=== PATIENT | male | born 1960 | race Caucasian/White ===

== ENCOUNTER 2021-10-26 09:48 | Outpatient (REF) | payer MEDICARE, OTHER, SELFPAY ==
[2021-10-26 11:02] LABS: MANUAL DIFF FLAG NO
[2021-10-26 11:05] LABS: Basophils Percent Auto 0.4 % (0-2); Eosinophils Percent Auto 0.4 % (0-4); Hematocrit 46.7 % (42.0-52.0); Hemoglobin 15.2 g/dl (14.0-18.0); Imm Gran Abs Auto 0.02 X10*3/uL (0.00-0.03); Imm Gran Pct Auto 0.3 % (0.0-0.4); Lymphocytes Absolute Auto 1.8 X10*3/uL (1.2-4.9); Lymphocytes Percent Auto 24.1 % (20-40); Mean Corpuscular HGB Conc 32.5 g/dl (31.0-36.0); Mean Corpuscular Hemoglobin 30.2 pg (27.0-33.0); Mean Corpuscular Volume 92.7 fL (80.0-98.0); Monocytes Absolute Auto 0.4 X10*3/uL (0.1-1.2); Neutrophils Percent Auto 68.8 % (45-73); Platelet Count 342 X10*3/uL (160-400); Red Blood Count 5.04 X10*6/uL (4.60-5.80); Red Cell Distribution Width 13.2 % (11.0-16.0); White Blood Count 7.3 X10*3/uL (4.8-10.8)
[2021-10-26 11:47] LABS: Alanine Aminotransferase 14 U/L (0-40); Albumin Level 4.6 g/dL (3.5-5.0); Alkaline Phosphatase 102 U/L (39-117); Anion Gap 18 (12-20); Aspartate Amino Transferase 21 U/L (5-37); Bilirubin Total 0.5 mg/dL (0.0-1.0); Blood Urea Nitrogen 16 mg/dL (9-16); Carbon Dioxide 25 mmol/L (22-29); Chloride 97 mmol/L (96-108); Cholesterol 166 mg/dL; Estimated Glomerular Filt Rate > 60; Glucose Fasting 88 mg/dL (60-99); HDL Cholesterol 48 mg/dL; LDL Cholesterol Calculated 98 mg/dl; Potassium 5.4 mmol/L (3.3-5.1); Sodium 135 mmol/L (135-145); Total Protein 7.5 g/dL (6.5-8.0); Triglycerides 100 mg/dL
[2021-10-26 12:08] LABS: Prostate Specific Antigen 0.96 ng/mL (<0.05-4.0)
== END 2021-10-26 09:49 | disposition home or self-care (01) ==
LOC: HO.MANLDS 09:48
PROVIDERS: PCP Physician Assistant; Visit Provider Physician Assistant
DX: Z12.5 Encounter for screening for malignant neoplasm of prostate (principal); E78.01 Familial hypercholesterolemia
CPT/HCPCS: 36415; 80053; 80061; 84153; 85025

== ENCOUNTER 2023-08-04 09:43 | Outpatient (REF) | payer MEDICARE, MEDICAID, SELFPAY ==
[2023-08-04 13:57] LABS: Anion Gap 11 (12-20); Blood Urea Nitrogen 19 mg/dL (9-16); Calcium 9.6 mg/dL (8.4-10.2); Carbon Dioxide 31 mmol/L (22-29); Chloride 100 mmol/L (96-108); Estimated Glomerular Filt Rate > 60; Glucose Random 83 mg/dL (60-115); Potassium 4.8 mmol/L (3.3-5.1); Sodium 137 mmol/L (135-145)
[2023-08-04 14:17] LABS: Free T4 (Free Thyroxine) 0.75 ng/dL (0.71-1.85); Thyroid Stimulating Hormone 3.54 uIU/mL (0.32-4.0)
== END 2023-08-04 09:44 | disposition home or self-care (01) ==
LOC: HO.MANLDS 09:43
PROVIDERS: Visit Provider Physician Assistant
DX: E03.9 Hypothyroidism, unspecified (principal); E87.5 Hyperkalemia
CPT/HCPCS: 36415; 80048; 84439; 84443

== ENCOUNTER 2024-11-25 09:23 | Outpatient (REF) | payer MEDICARE, MEDICAID, SELFPAY ==
[2024-11-25 13:53] LABS: MANUAL DIFF FLAG NO
[2024-11-25 14:00] LABS: Basophils Percent Auto 0.3 % (0-2); Eosinophils Percent Auto 0.2 % (0-4); Hematocrit 44.1 % (42.0-52.0); Hemoglobin 14.6 g/dl (14.0-18.0); Imm Gran Abs Auto 0.04 X10*3/uL (0.00-0.03); Imm Gran Pct Auto 0.5 % (0.0-0.4); Lymphocytes Absolute Auto 2.3 X10*3/uL (1.2-4.9); Lymphocytes Percent Auto 26.5 % (20-40); Mean Corpuscular HGB Conc 33.1 g/dl (31.0-36.0); Mean Corpuscular Hemoglobin 30.2 pg (27.0-33.0); Mean Corpuscular Volume 91.1 fL (80.0-98.0); Mean Platelet Volume 8.8 fL (9.4-12.4); Monocytes Absolute Auto 0.6 X10*3/uL (0.1-1.2); Neutrophils Absolute Auto 5.8 x10*3/uL (2.0-8.3); Neutrophils Percent Auto 65.5 % (45-73); Platelet Count 351 X10*3/uL (160-400); Red Blood Count 4.84 X10*6/uL (4.60-5.80); Red Cell Distribution Width 13.1 % (11.0-16.0); White Blood Count 8.8 X10*3/uL (4.8-10.8)
[2024-11-25 14:08] LABS: Estimated Average Glucose 117 mg/dL; Hemoglobin A1C 149.0749 umol/L; Hemoglobin A1c % 5.7 % (<6.0)
[2024-11-25 14:36] LABS: Erythrocyte Sedimentation Rate 5 MM/HR (0-15)
[2024-11-25 14:42] LABS: Alanine Aminotransferase 38 U/L (0-40); Albumin Level 4.5 g/dL (3.5-5.0); Alkaline Phosphatase 102 U/L (39-117); Amylase 82 U/L (28-100); Anion Gap 16 (12-20); Aspartate Amino Transferase 43 U/L (5-37); Bilirubin Total 0.5 mg/dL (0.0-1.0); Blood Urea Nitrogen 13 mg/dL (9-16); C Reactive Protein < 0.10 mg/dL (< or = 0.50); Calcium 9.7 mg/dL (8.4-10.2); Carbon Dioxide 26 mmol/L (22-29); Chloride 100 mmol/L (96-108); Cholesterol 139 mg/dL (<200); Estimated Glomerular Filt Rate > 60; Glucose Random 96 mg/dL (60-115); HDL Cholesterol 57 mg/dL (>40); Iron 128 mcg/dL (45-160); LDL Cholesterol Calculated 68 mg/dL (<100); Lipase 35 U/L (8-78); Percent Iron Saturation 43 % (15-50); Potassium 4.8 mmol/L (3.3-5.1); Sodium 137 mmol/L (135-145); Total Iron Binding Capacity 297 mcg/dL (228-428); Total Protein 7.5 g/dL (6.5-8.0); Triglycerides 71 mg/dL (<150); Unsaturated Iron Binding 169 ug/dL
[2024-11-25 14:57] LABS: Prostate Specific Antigen 1.46 ng/mL (<0.05-4.0)
[2024-11-25 14:59] LABS: Gamma Glutamyl Transpeptidase 20 U/L (11-51)
[2024-11-25 15:05] LABS: Ferritin 145 ng/mL (20-250); Thyroid Stimulating Hormone 4.24 uIU/mL (0.32-4.0)
[2024-11-25 18:20] LABS: Appearance Urine Clear; Color Urine Yellow; Glucose Urine UA Negative (Negative); Leukocyte Esterase Urine Negative (Negative); Nitrite Urine Negative (Negative); PH 5.5 (5.0-9.0); UMIC TRIGGER UACC YES; Urine Blood Small (1+) (Negative); Urine Ketones 15 mg/dL (Negative); Urine Protein Negative (Neg-Trace)
[2024-11-25 18:29] LABS: Bacteria Urine None Seen (None Seen); Hyaline Casts Urine 0-2 /LPF (0-2); Squamous Epithelial Cell Urine 0-2 /HPF (0-2); WBC Urine 0-5 /HPF (0-5)
[2024-11-25 18:47] LABS: T4 Thyroxine 6.7 ug/dL (4.5-12.0)
== END 2024-11-25 09:24 | disposition home or self-care (01) ==
LOC: HO.MANLDS 09:23
PROVIDERS: Visit Provider Internal Medicine
DX: Z12.5 Encounter for screening for malignant neoplasm of prostate (principal); Z13.1 Encounter for screening for diabetes mellitus; R19.7 Diarrhea, unspecified; E03.8 Other specified hypothyroidism; E78.01 Familial hypercholesterolemia; N40.1 Benign prostatic hyperplasia with lower urinary tract symptoms
CPT/HCPCS: 36415; 80053; 80061; 81001; 82150; 82728; 82977; 83036; 83540; 83690; 84153; 84436; 84443; 85025; 85652; 86140

== ENCOUNTER 2024-12-24 09:05 | Outpatient (REF) | payer MEDICARE, MEDICAID, SELFPAY ==
--- OUTSIDE RECORDS SUMMARY | 2024-12-24 09:44 | XMS_ITS | Data Portability ---
Author Organization [facility] Service Address [address] [place] [address] Assessment Encounter Date Assessment Date Assessment LastModified by Organization Details LastModified Time 05/04/2022 05/04/2022 Patient agreed and verbally consents to this audio and video Telehealth appt via a secure platform [email or web address] Not available 05/04/2022 09:32:56 Plan of Treatment Reminders Order Date Submit Date Provider Last Modified By Organization Details Last Modified Time Details Appointments None recorded. Lab C reactive protein, QN, serum or plasma 2024 025 [facility], [address] [place] [address], [address], 09:17:21 amylase + lipase, serum 2024 025 [facility], [address] [place] [address], [address], 5 09:17:21 ESR (erythrocy te sedimentat ion rate), blood 2024 025 [facility], [address] [place] [address], [address], 5 09:17:21 iron + TIBC + ferritin, serum 2024 025 [facility], [address] [place] [address], [address], 5 11:18:33 gamma-glut amyl transferas e (ggt), serum 2024 025 [facility], [address] [place] [address], [place], [address], 5 09:17:21 PSA, serum or plasma 2024 025 [facility], [address] [place] [address], [address], 5 09:09:34 lipid panel, blood 2024 025 [facility], [address] [place] [address], [address], 5 09:09:34 CMP, serum or plasma 2024 025 [facility], [address] [place] [address], [address], 5 09:09:34 CBC w/ auto diff 2024 025 [facility], [address] [place] [address], [place], [address], 5 09:09:34 hemoglobin A1c, QN, blood 2024 025 [facility], [address] [place] [address], [address], 5 09:09:34 TSH + free T4, serum 2024 025 [facility], [address] [place] [address], [address], 5 09:09:34 urinalysis complete, reflex culture 2024 025 [facility], [address] [place] [address], [address], 5 09:09:34 TSH + free T4, serum 12/08/ 2023 12/08/2 023 [facility], [address] [place] [address], [address], 3 09:30:17 hemoglobin A1c, QN, blood 2022 023 [facility], [place], [address], 3 15:41:14 PSA, serum or plasma 2022 023 [facility], [place], [address], 3 15:29:25 TSH + free T4, serum 2022 023 [facility], [place], [address], 3 15:36:24 lipid panel, blood 2022 023 [facility], [place], [address], 3 15:07:34 CMP, serum or plasma 2022 023 [facility], [place], [address], 3 10:00:49 CBC w/ auto diff 2022 023 [facility], [place], [address], 3 14:41:01 PSA, serum or plasma 2021 022 [facility], [address] [place] [address], [address], 2 09:45:07 CMP, serum or plasma 2021 022 [facility], [address] [place] [address] [place], [address], 2 14:13:02 lipid panel, blood 2021 022 [facility], [address] [place] [address], [address], 2 09:45:07 CBC w/ auto diff 2021 022 [facility], [address] [place] [address], [address], 2 09:45:08 Referral gastroente rologist referral 2024 025 [facility], [address] [place] [address], [address], 5 09:06:47 dermatolog ist referral 2022 023 [facility], [address] [place], [address], 3 08:58:42 dermatolog ist referral 2022 023 [facility], [address] [place], [address], 3 08:33:05 Procedures None recorded. Surgeries None recorded. Imaging US, neck, soft tissue 2022 023 [facility], [address] [place], [address], 3 08:58:12 Medication Orders venlafaxin e ER 150 mg capsule,ex tended release 24 hr 2021 022 [email or web address] Not available 5 10:01:03 metoprolol tartrate 50 mg tablet 2021 022 [facility]/Pharmacy #2025, [address] [place], [address], 2 09:37:20 lisinopril 10 mg tablet 2021 [facility]Pharmacy #2024, [address] [place], [address], 2 09:37:20 atorvastat in 80 mg tablet 2021 [facility]Pharmacy #2024, [address] [place], [address], 2 09:37:21 venlafaxin e ER 75 mg capsule,ex tended release 24 hr 2021 [facility]/Pharmacy #2024, [address] [place], [address], 2 09:32:47 Patient TargetsNo targets recorded. Patient InstructionsNo instructions recorded. 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 [facility] [address] [place], [address], 08/11/2023 13:28:20 08/18/20 23 08/18/2023 US, duple x, carot id arter y No observ ation record ed. [email or web address] [facility] [address] [place], [address], 08/18/2023 14:36:42 12/04/19 25 12/03/2024 CT, abdom en + pelvi s, w/ contr ast No observ ation record ed. [email or web address] [facility] (Emergency Room) [address] [place], [address], 12/03/2024 08:16:10 Result Notes None recorded. 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 Urology work up Not Available [facility] 19:17:56 Coronary occlusio n 10084562 Active 2017 RCA s/p sent 2006 Not Available [facility] 19:17:56 Myocardi al infarcti on 98446863 Active 2018 Not Available [facility] 19:17:56 Mild recurren t major depressi on 06761042 Active 2018 Not Available [facility] 1 19:17:56 Impaired fasting glycemia 643691028 Active 2022 JOVAN WILLIS [address] [place], [address], [facility] 3 09:54:00 Basal cell carcinom a of skin 619974668 Active 2022 JOVAN WILLIS [address] [place], [address], [facility] 3 09:55:37 Hypothyr oidism 71160480 Active 2022 JOVAN WILLIS [address] [place] [address], [address], [facility] 3 08:57:12 Hyperkal emia 18848042 Active 2022 JOVAN WILLIS [address] [place] [address], [address], [facility] 3 08:57:19 Mass of neck 816379913 Active 2022 JOVAN WILLIS [address] [place] [address], [address], [facility] 3 09:30:59 Skin lesion 75153973 Active 2022 JOVAN WILLIS [address] [place] [address], [address], [facility] 3 09:33:54 Carotid artery stenosis 90991997 Active 2022 JOVAN WILLIS [address] [place] [address], [address], [facility] 3 13:28:52 Diarrhea 35722729 Active 2024 JOVAN WILLIS [address] [place] [address], [address], [facility] 5 09:04:23 Benign prostati c hyperpla clinton 442065743 Active 2024 JOVAN WILLIS [address] [place], [address], [facility] 5 09:06:51 Anxiety 71229446 Active 2024 JOVAN WILLIS [address] [place], [address], [facility] 5 10:00:54 Problem Notes None recorded. Procedures Surgical History Date Name Laterality Status Provider Name and Address Organization Details Recorded Time 08/28/19 07 placement of stent completed [facility] 06/03/2019 08:26:33 hemorrhoid operation completed [facility] 06/03/2019 08:28:08 Thoracostomy w/flap drainage completed November KUNAL Mitchell [address] [place], [address], [facility] 06/03/2019 10:09:53 Imaging Results Imaging Date Name Status LastModified by Organiz ation Details LastModified Time 08/11/2023 US, neck, soft tissue completed [email or web address] [facility] [address] [place], [address], 08/11/2023 13:28:20 08/18/2023 US, duplex, carotid artery completed [email or web address] [facility] [address] [place], [address], 08/18/2023 14:36:42 12/03/2024 CT, abdomen + pelvis, w/ contrast completed [email or web address] [facility] (Emergency Room) [address] [place] [address], [address], 12/03/2024 08:16:10 Procedure Notes None recorded. Medical Equipment None Reported. Allergies No known drug allergies Medications Name Sig Start Date Stop Date Status Note LastModified by Organization Details LastModified Time cyclobenzap rine 10 mg tablet Take 1 mg every day by oral route for 30 days. 11/21 completed Not Available Not Available Not Available atorvastati n 80 mg tablet TAKE 1 TABLET BY MOUTH EVERY DAY active Not Available Not Available No t Available venlafaxine ER 75 mg capsule,ext ended release 24 hr TAKE 1 CAPSULE BY MOUTH EVERY DAY active Not Available Not Available No t Available azithromyci n 250 mg tablet TAKE 2 TABLETS (500 MG) BY ORAL ROUTE ONCE DAILY FOR 1 DAY THEN 1 TABLET (250 MG) BY ORAL ROUTE ONCE DAILY FOR 4 DAYS 06/03 completed Not Available Not Available Not Available Medrol (Matt) 4 mg tablets in a dose pack 24 mg PO on day 1, then decr. by 4 mg/day x5 days per dose pack instructi ons 06/03 completed Not Available Not Available Not Available gabapentin 400 mg capsule TAKE 1 CAPSULE BY MOUTH THREE TIMES A DAY 10/26 completed Not Available Not Available Not Available venlafaxine ER 150 mg capsule,ext ended release 24 hr TAKE 1 CAPSULE DAILY 11/27 completed Not Available Not Available Not Available flaxseed oil 1,000 mg capsule Take 1 capsule every day by oral route. active Not Available Not Available No t Available tamsulosin 0.4 mg capsule TAKE 1 CAPSULE BY MOUTH NIGHTLY AT BEDTIME. active Not Available Not Available No t Available levothyroxi ne 50 mcg tablet TAKE 1 TABLET BY MOUTH EVERY DAY 11/21 completed Not Available Not Available Not Available lisinopril 10 mg tablet TAKE 1 TABLET BY MOUTH EVERY DAY active Not Available Not Available No t Available metoprolol tartrate 50 mg tablet TAKE 1 TABLET BY MOUTH TWICE A DAY active Not Available Not Available No t Available Pneumovax-2 3 25 mcg/0.5 mL injection syringe [facility] 10/26 completed Not Available Not Available Not Available duloxetine 20 mg capsule,del ayed release TAKE 1 CAPSULE BY MOUTH TWICE A DAY 10/26 completed Not Available Not Available Not Available duloxetine 30 mg capsule,del ayed release 12/02 completed Not Available Not Available Not Available Aspir-81 Take one tablet once a day active Not Available Not Available No t Available multivitami n active Not Available Not Available Not Available Tenivac (PF) 5 Lf unit-2 Lf unit/0.5 mL intramuscul ar suspension [facility] 10/26 completed Not Available Not Available Not Available duloxetine 40 mg capsule,del ayed release Take 1 capsule every day by oral route for 90 days. 11/21 completed Not Available Not Available Not Available Fish Oil 1,000 mg (120 mg-180 mg) capsule Take 2 capsules every day by oral route. active Not Available Not Available No t Available Flucelvax Quad (PF) 60 mcg (15 mcg x 4)/0.5 mL IM syringe [facility] 01/06 completed Not Available Not Available Not Available Vitals Date Recorded Body height Body mass index (BMI) Body weight Oxygen saturation Oxygen saturation in Arterial blood by Pulse oximetry Heart rate Systolic blood pressure Diastolic blood pressure Provider Name and Address Organization Details Last Updated DateTime 2 169.55 cm 22.3 kg/m2 08715.6 g 98 % 98 % 81 /min 140 mm[Hg] 100 mm[Hg] Margi Hurst [facility] 2 09:27:21 Date Recorded Body height Body mass index (BMI) Body weight Heart rate Oxygen saturation Oxygen saturation in Arterial blood by Pulse oximetry Systolic blood pressure Diastolic blood pressure Provider Name and Address Organization Details Last Updated DateTime 3 172.72 cm 20.2 kg/m2 03283.7 9 g 65 /min 98 % 98 % 128 mm[Hg] 78 mm[Hg] Neisha Barreto [facility] 3 09:39:32 Date Recorded Body height Body mass index (BMI) Body weight Heart rate Oxygen saturation Oxygen saturation in Arterial blood by Pulse oximetry Systolic blood pressure Diastolic blood pressure Provider Name and Address Organization Details Last Updated DateTime 3 172.72 cm 25.4 kg/m2 87554.9 3 g 74 /min 98 % 98 % 138 mm[Hg] 78 mm[Hg] Catarina Leon [facility] 3 09:24:37 Date Recorded Body height Body mass index (BMI) Body weight Heart rate Oxygen saturation Oxygen saturation in Arterial blood by Pulse oximetry Systolic blood pressure Diastolic blood pressure Provider Name and Address Organization Details Last Updated DateTime 5 172.72 cm 20.4 kg/m2 22622.3 8 g 75 /min 97 % 97 % 140 mm[Hg] 90 mm[Hg] Neisha Barreto [facility] 5 08:59:01 Social History Question Answer Notes LastModified by Organizat ion Details LastModified Time Tobacco Smoking Status Former Smoker Not Available [facility] 06/30/2020 03:36:24 Do You Or Have You Ever Used E-cigarettes Or Vape? Never Used Electronic Cigarettes [id number] Information not available 06/30/2020 What Was The Date Of Your Most Recent Tobacco Screening? 11/25/2024 [email or web address] Information not available 11/25/2024 Do You Or Have You Ever Used Smokeless Tobacco? Never Used Smokeless Tobacco [id number] Information not available 06/30/2020 How Many Years Have You Smoked Tobacco? 25 [id number] Information not available 06/30/2020 Do You Or Have You Ever Used Any Other Forms Of Tobacco Or Nicotine? No [email or web address] Information not available 11/21/2022 Sex: Unknown Functional Status None recorded. Mental Status None recorded. Family History Relationship Description Onset Age of this Age Resolved Age Notes LastModified by Organization Details LastModified Time Father Cerebrovascu lar disease [email or web address] Not available 10/28 08:52:14 Father Diabetes mellitus [email or web address] Not available 2018 08:25:27 Father Coronary arterioscler osis [email or web address] Not available 06/03 10:07:24 Mother Diabetes mellitus [email or web address] Not available 2018 08:25:40 Mother Cerebrovascu lar disease [email or web address] Not available 10/28 08:52:14 Mother Myocardial infarction [email or web address] Not available 02/2019 10:07:15 Medical History Condition Response Coronary Artery Disease N Gout N Other N Kidney Stones N Blood Diseases N Blood Transfusion N Breast Cancer N COPD N Depression N Lung Disease N Defects or Inherited Disease N Anxiety Disorder N Muscle, Joint, or Bone Problems N Obesity N Vision or Eye Problems N Arthritis N Infertility N Polyps N Mental Disorder N Cancer N Stroke N Varicosities N Endometriosis N Bladder or Kidney Problems N High Cholesterol N Liver Disease N Fibromyalgia N Headaches N Kidney Disease N Allergies/Hayfever N Heart Problems N Hospitalizations N Thyroid Problems N GI Problems N Eating Disorder N Skin Problems N Anemia N MRSA exposure N Constipation N Mental Illness N Diabetes N Ovarian Cancer N Seizures/Epilepsy N Tuberculosis N Congestive Heart Failure (CHF) N Eczema N Abuse/Domestic Violence N Diverticulitis N Asthma N Reflux/GERD N Hepatitis N Heart Disease N Pulmonary Embolism N Hypertension N Chicken Pox N Autism Spectrum Disorder (ASD) N Osteoporosis N Immunizations Vaccine Type Date Status Note Provider Nam e and Address Organization Details Recorded Time Influenza, split virus, quadrivalent, preservative 8 completed Not Available [facility] 10/22/2020 19:17:56 zoster, unspecified formulation 4 completed Bailee navarro [facility] 07/24/2024 08:19:22 influenza, unspecified formulation 4 completed Bailee navarro [facility] 07/24/2024 08:19:31 Influenza, split virus, quadrivalent, preservative 9 completed Not Available [facility] 10/22/2020 19:17:56 Td(adult) unspecified formulation 0 completed Not Available [facility] 10/22/2020 19:17:56 Influenza, split virus, quadrivalent, preservative 0 completed Not Available [facility] 10/22/2020 19:17:56 pneumococcal polysaccharide PPV23 0 completed Not Available [facility] 10/22/2020 19:17:56 Past Encounters Encounter ID Performer Location Encounter Start Date Encounter Closed Date Diagnosis/Indication Diagnosis SNOMED-CT Code Diagnosis ICD10 Code Diagnosis Note [id number] November [facility] [address] [place] [address],[place] [address] 05/15/2018 10:45:46 05/15/2018 11:19:50 Pleurisy 320635024 R09.1 s/p LRI ? Leukocytosis 742648719 D 72.829 again possible infection pneumoniti s Pneumonitis 861839693 J9 5.851 possible infection pneumoniti s seen on CTA of chest vs atelectasi s [id number] November [facility] [address] [facility],[place] [address] 06/03/2019 09:33:01 06/03/2019 10:25:22 Microscopic hematuria 997914678 R31.21 has had negative work up in 2016 Pain of mu ltiple joints 78490440 M25.50 will send for second opinion Adult [facility] examination 671234915 Z00.00 first year on medicare HCP ppw Hypercholesterolemia 136 31584 E78.00 Vitamin D deficiency 347 93207 E55.9 Hypothyroidism 03745820 E03.9 Active or passive immunization 026920548 Z23 will send rx Skin lesion 21261635 L98 .9 [id number] SANGITA ResendezGAGE [facility] [address] [facility] [address],[place] [address] 12/03/2019 08:50:06 12/03/2019 09:13:00 Hypertensive disorder 16576284 I10 Hypercholesterolemia 136 06004 E78.00 Vitamin D deficiency 347 95888 E55.9 Hypothyroidism 63847653 E03.9 [id number] JOVAN WILLIS [facility] [address] [facility],[place] [address] 06/05/2020 08:49:41 06/05/2020 09:36:37 Active or passive immunization 946845116 Z23 sent tdap to pharmacy Adult [facility] examination 428759412 Z00.00 BP great will check BP needs XR ELLIOTT r/o fx Ankle pain 031221238 M25 .579 needs XR for possible broken ankle Screening for cardiovascular system disease 050497752 Z13.6 bw, hasn't had bw in year [id number] JOVAN WILLIS [facility] [address] [facility],[place] [address] 10/26/2021 09:12:44 10/27/2021 10:44:21 Hypercholesterolemia 63135216 E78.01 will fu with blood work Hypertensive disorder 38 786309 I10 had not been taking his BP medication because he ran outwill not qualify this as a need to change his medication s Anxiety 40705550 F41.1 stable Screening for malignant neoplasm of prostate 617369703 Z12.5 will recheck PSA [id number] JOVAN WILLIS [facility] [address] [facility],[place] [address] 05/04/2022 08:25:30 05/04/2022 11:20:48 Hypercholesterolemia 22032595 E78.01 will fu with blood work Hypertensive disorder 38 508569 I10 taking all his medication s again and states his BP has been down 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 778699270 E06.3 stable Mild recur rent major depression 05113106 F33.0 feels great on the venlafaxin e, did agree to try a higher dose since he feels it wears off too soon [id number] JOVAN WILLIS [facility] [address] [facility] [address], [place] [address] 11/21/2022 09:18:07 11/21/2022 15:15:56 Hypercholesterolemia 80309734 E78.01 will f/u with blood work Hypertensive disorder 38 444080 I10 taking all his medication s again and states his BP has been down Tobacco de pendence syndrome 08025928 F17.290 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 167161393 E06.3 stable Impaired f asting glycemia 413951297 R73.01 will set up with recheck A1c Screening for malignant neoplasm of prostate 359185486 Z12.5 will recheck PSA level Basal cell carcinoma of skin 076439704 C44.319 will set up with dermatolog y Mild recur rent major depression 18307027 F33.0 stable [id number] JOVAN WILLIS [facility] [address] [facility], [place] [address] 08/04/2023 09:16:07 08/04/2023 11:41:27 Hypothyroidism 12629725 E03.8 will set up with screening for the thyroid Mass of neck 928667984 R 22.1 will set up with US to r/o mass vs cyst vs LN Skin lesion 40793945 L98 .9 will set up with [place] Derm for possible basal cell vs skin lesion related to UV exposure [id number] JOVAN WILLIS [facility] [address] [facility] [address], [place] [address] 11/25/2024 08:50:27 11/25/2024 10:21:00 Diarrhea 96359193 R19.7 will set up for colonoscop y and additional lab work Hypothyroidism 61727552 E03.8 will set up with screening for the thyroid Hypercholesterolemia 136 25704 E78.01 will f/u with blood work Screening for malignant neoplasm of prostate 547221772 Z12.5 will recheck PSA level Benign pro static hyperplasia 386296756 N40.1 agreed Health Concerns Section Related Observation LastModified by Organization Detai ls LastModified Time None Recorded Concern Status LastModified by Organization Details LastModified Time None Recorded Advance Directives Directive None Recorded Payers Encounter Date Sequence Insurance Name Policy Number Policy Zamora Covered Member ID Zamora Member ID Guarantor Name 10/26/2021 1 [place] [employer] Raimundo Leung Blunt [id number] Raimundo Leung Blunt 05/04/2022 1 [place] Raimundo Leung Taiwo [id number] Raimundo Leung Blunt 05/04/2022 2 [place] Raimundo Leung Taiwo [id number] Raimundo Leung Blunt 11/21/2022 1 [place] [employer] Raimundo Leung Taiwo [id number] Raimundo Leung Taiwo 11/21/2022 2 [place] Raimundo Leung Taiwo [id number] Raimundo Leung Taiwo 08/04/2023 1 [place] [employer] Raimundo Leung Taiwo [id number] Raimundo Leung Blunt 08/04/2023 2 [place] Raimundo Leung Blunt [id number] Raimundo eLung Taiwo 11/25/2024 1 [place] [employer] [employer] Raimundo Leung Blunt [id number] Raimundo Leung Taiwo 11/25/2024 2 [place] Raimundo Leung Blunt [id number] Raimundo Leung Taiwo Notes Date Note Type Note Provider Name a ms Address Organization Details Recorded Time 10/26/2021 text/html medication check HLD: needs rechecklab-work provided today HTN: the patient BP is elevated today due to the fact that he ran out of his medication and hasn't taken them in a few daysno need to dose adjust, just need to restart them anxiety: stable on medication, no intervention needed at this time screening PSA: has not had one done in awhile, suggested repeat PSA, if normal will recheck every 2 to 3 years or if patient starts becoming symptomatic no concerns todaydoing well JOVAN WILLIS [address] [place] [address], [place], [phone], [facility] 10/26/2021 09:45:42 05/04/2022 text/html 6 mos fu telemed phone callpatient consents to phone call MDD: the patient is reporting that he is doing really welldiscussed increasing his venlafaxine as it works really well, but fades off at the end of the daywill boost up to the next dose, 150 mg ER and send to [facility] in the meantime as his pharmacy is closed for roof repairs HTN: BP at home is 120s/80s which is excellent now that he is taking his meds againrecently refilled, no side effects hypothyroidism: stable HLD: will recheck prior to next appt JOVAN WILLIS [address] [place], [id number], [facility] 05/04/2022 09:37:51 11/21/2022 text/html f/u medication anxiety: working really well; the pt states overall he is feeling better, mood is improvedHTN: today in the office the patient BP is 128/78 R arm sitting the patient is doing well on the BP medication with no side effects and no adjustment of their medications needed today at the appointment well-controlled on medication denies chest pain, sob, ankle swelling, orthopnea, palpitationsIFG: will screen his levels againpossible basal cell on his face, agreed to derm fuHLD: needs recheck everything else if good, patient has no concerns today JOVAN WILLIS [address] [place], [id number], [facility] 11/21/2022 10:00:39 08/04/2023 text/html c/o pain in neck x months the patient reports that he has pain in the neck, front of the neckalong the left side of the thyroid, notes it can get painful, feels like it swells when it gets painful will set up with US of his neck still has the lesion left side of his face, came back again, pearly rolled edge with pinkish colorwill set up with [facility] Dermneeds biopsy for screening for basal cell JOVAN WILLIS [address] [place], [id number], [facility] 08/04/2023 09:37:01 11/25/2024 text/html f/u appt the patient reports that he has been having bowel changes for the past few months (patient hasn't been seen for two years)the patient reports that's he has mucus in his stool, it is often loosethe patient denies blood in the stool the patient's last [facility] 13 years agoneeds f/u with updated colonoscopy and eval by GI pt agrees to this referral having more urinary symptoms, hx of BPH, recommended f/u PSA and urine check the patient saw cardio in March, sees them once per yearno changes per patient, EKG and lab work was wnlthe patient reports that they will probably being switched to rosuvastatin for better cholesterol control no changes in medications no new allergies to medications JOVAN WILLIS [address] [place] [address], [place], [id number], [facility] 11/25/2024 09:19:19
[2024-12-24 13:57] LABS: Free T4 (Free Thyroxine) 0.84 ng/dL (0.71-1.85); Thyroid Stimulating Hormone 2.34 uIU/mL (0.32-4.0)
== END 2024-12-24 09:06 | disposition home or self-care (01) ==
LOC: HO.MANLDS 09:05
PROVIDERS: Visit Provider Physician Assistant
DX: E03.8 Other specified hypothyroidism (principal)
CPT/HCPCS: 36415; 84439; 84443

== ENCOUNTER 2025-01-08 07:39 | Outpatient (REF) | payer MEDICARE, MEDICAID, SELFPAY ==
--- OUTSIDE RECORDS SUMMARY | 2025-01-08 07:42 | XMS_ITS | Data Portability ---
Author Organization [facility] Service Address [address] [place] [address] Assessment Encounter Date Assessment Date Assessment LastModified by Organization Details LastModified Time 05/04/2022 05/04/2022 Patient agreed and verbally consents to this audio and video Telehealth appt via a secure platform [email or web address] Not available 05/04/2022 09:32:56 Plan of Treatment Reminders Order Date Submit Date Provider Last Modified By Organization Details Last Modified Time Details Appointments None recorded. Lab TSH + free T4, serum 2024 025 [facility], [address] [place] [address], [id number], 16:38:45 thyroid peroxidase (tpo) Ab, serum 2024 025 [facility], [address] [place] [address], [address], 5 16:38:45 T3, total, serum 2024 025 [facility], [address] [place] [address], [address], 5 16:38:45 tsi (thyroid-s timulating immunoglob ulin), serum 2024 025 [facility], [address] [place] [address], 395[address], 5 16:38:45 ESR (erythrocy te sedimentat ion rate), blood 2024 025 [facility], [address] [place] [address], [address], 5 16:38:45 C-reactive protein, quantitati ve, serum or plasma 2024 025 [facility], [address] [place] [address], [address], 5 16:38:45 lyme disease igg+igm, serum, reflex western blot 2024 [facility], [address] [place] [address], [address], 5 16:38:45 anaplasma phagocytop hilum + ehrlichia chaffeensi s IgG + IgM panel, serum 2024 025 [facility], [address] [place] [address], 215[address], 5 16:38:45 C reactive protein, QN, serum or plasma 2024 025 [facility], [address] [place] [address], 916[address], 5 09:17:21 amylase + lipase, serum 2024 025 [facility], [address] [place] [address], 428[address], 5 09:17:21 ESR (erythrocy te sedimentat ion rate), blood 2024 025 [facility], [address] [place] [address], 8[address], 5 09:17:21 iron + TIBC + ferritin, serum 2024 025 [facility], [address] [place] [address], [address], 5 11:18:33 gamma-glut amyl transferas e (ggt), serum 2024 025 [facility], [address] [place] [address], 84[address], 09:17:21 PSA, serum or plasma 2024 025 [facility], [address] [place] [address], 24[address], 09:09:34 lipid panel, blood 2024 025 [facility], [address] [place] [address], 11790, 09:09:34 CMP, serum or plasma 2024 025 [facility], [address] [place] [address], 437[address], 5 09:09:34 CBC w/ auto diff 2024 025 [facility], [address] [place] [address], 770[address], 09:09:34 hemoglobin A1c, QN, blood 2024 025 [facility], [address] [place] [address], 55[address], 5 09:09:34 TSH + free T4, serum 2024 025 [facility], [address] [place] [address], 30[address], 5 13:10:04 urinalysis complete, reflex culture 2024 025 [facility], [address] [facility], [place], [address], 5 09:09:34 TSH + free T4, serum 2022 023 [facility], [address] [facility], [place], [address], 3 09:30:17 hemoglobin A1c, QN, blood 2022 023 [facility], [place], [address], 3 15:41:14 PSA, serum or plasma 2022 023 [facility], [place], [address], 3 15:29:25 TSH + free T4, serum 2022 023 [facility], [place], [address], 3 15:36:24 lipid panel, blood 2022 023 [facility], [place], [address], 3 15:07:34 CMP, serum or plasma 2022 023 [facility], [place], [address], 3 10:00:49 CBC w/ auto diff 2022 023 [facility], [place], [address], 3 14:41:01 Referral gastroente rologist referral 2024 025 [facility], [address] [place] [address], [address], 5 09:06:47 dermatolog ist referral 2022 023 [facility], [address], [place], [address], 3 08:58:42 dermatolog ist referral 2022 023 [facility], [address], [place], [address], 3 08:33:05 Procedures None recorded. Surgeries None recorded. Imaging US, neck, soft tissue 2022 023 [facility], [address] [place], [address], 3 08:58:12 Medication Orders venlafaxin e ER 150 mg capsule,ex tended release 24 hr 2021 022 [email or web address] Not available 5 10:01:03 Patient TargetsNo targets recorded. Patient InstructionsNo instructions recorded. Reason for Referral Section 8 Property Manager Referral for B elizabeth cell carcinoma of skin possible basal cell carcinoma of the left side of the face Referring Physician: Nilam Le, Internal Medicine, Encounter Date: 11/21/2022 Section 8 Property Manager Referral for S kin lesion ? basal cell carcinoma, non healing, bleeding with rolled pearly appearance Referring Physician: Nilam Le, Internal Medicine, Encounter Date: 08/04/2023 Educational Assistant Referral for Diarrhea diarrhea, bowel changes, greasy stool, painful bowel movements Referring Physician: Nilam Le [facility], Encounter Date: 11/25/2024 Results Created Date Observation Date Name Description Value Unit Range Abnormal Flag Note LastModifiedBy Organization Detail LastModifiedTime 08/11/20 23 08/11/2023 US, neck, soft tissu e No observ ation record ed. [email or web address] [facility] [address] [place], [address], 08/11/2023 13:28:20 08/18/20 23 08/18/2023 US, jimmie x, carot id arter y No observ ation record ed. [email or web address] [facility] [address] [place], [address], 08/18/2023 14:36:42 12/04/19 25 12/03/2024 CT, abdom en + pelvi s, w/ contr ast No observ ation record ed. [email or web address] [facility] (Emer[facility]) [address] [place], [address], 12/03/2024 08:16:10 Result Notes None recorded. 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 Urology work up Not Available [facility] 19:17:56 Coronary occlusio n 41204762 Active 2017 RCA s/p sent 2006 Not Available [facility] 19:17:56 Myocardi al infarcti on 90558956 Active 2018 Not Available [facility] 19:17:56 Mild recurren t major depressi on 77942231 Active 2018 Not Available [facility] 19:17:56 Impaired fasting glycemia 658231607 Active 2022 JOVAN WILLIS [address] [place], [address], [facility] 3 09:54:00 Basal cell carcinom a of skin 749973081 Active 2022 JOVAN WILLIS [address] [place], [address], [facility] 3 09:55:37 Hypothyr oidism 39810322 Active 2022 JOVAN WILLIS [address] [place], [address], [facility] 3 08:57:12 Hyperkal emia 96610842 Active 2022 JOVAN WILLIS [address] [place], [address], [facility] 3 08:57:19 Mass of neck 478357416 Active 2022 JOVAN WILLIS [address] [place] [address], [address], [facility] 3 09:30:59 Skin lesion 10986069 Active 2022 JOVAN WILLIS [address] [place] [address], [address], [facility] 3 09:33:54 Carotid artery stenosis 06669436 Active 2022 JOVAN WILLIS [address] [place] [address], [address], [facility] 3 13:28:52 Diarrhea 26830020 Active 2024 JOVAN WILLIS [address] [place], [address], [facility] 5 09:04:23 Benign prostati c hyperpla clinton 332097256 Active 2024 JOVAN WILLIS [address] [place], [address], [facility] 5 09:06:51 Anxiety 77854582 Active 2024 JOVAN WILLIS [address] [place], [address], [facility] 5 10:00:54 Retentio n of urine 398038067 Active 2024 JOVAN WILLIS [address] [place], [address], [facility] 5 16:25:53 Subclini sharla hypothyr oidism 00561514 Active 2024 JOVAN WILLIS [address] [place] [address], [address], [facility] 5 16:27:30 Fatigue 51150697 Active 2024 JOVAN WILLIS [address] [place] [address], [address], [facility] 5 16:31:53 Eruption 436589090 Active 2024 JOVAN WILLIS [address] [place] [address], [address], [facility] 5 16:34:22 Problem Notes None recorded. Procedures Surgical History Date Name Laterality Status Provider Name and Address Organization Details Recorded Time 08/28/19 07 placement of stent completed Mary Carmen Rose [facility] 06/03/2019 08:26:33 hemorrhoid operation completed Mary Carmen Rose [facility] 06/03/2019 08:28:08 Thoracostomy w/flap drainage completed Grazyna KUNAL Mitchell [address] [place], [address], [facility] 06/03/2019 10:09:53 Imaging Results Imaging Date Name Status LastModified by [facility] Details LastModified Time 08/11/2023 US, neck, soft tissue completed [email or web address] [facility] [address] [place], [address], 08/11/2023 13:28:20 08/18/2023 US, duplex, carotid artery completed [email or web address] [facility] [address] [place], [address], 08/18/2023 14:36:42 12/03/2024 CT, abdomen + pelvis, w/ contrast completed [email or web address] [facility] [address] [place], [address], 12/03/2024 08:16:10 Procedure Notes None recorded. Medical [...] TAKE 1 CAPSULE BY MOUTH EVERY DAY 01/07 completed Not Available Not Available Not Available azithromyci n 250 mg tablet TAKE [...] mg capsule TAKE 1 CAPSULE BY MOUTH AT BEDTIME active Not Available Not Available No t [...] 3 25 mcg/0.5 mL injection syringe [facility] 10/26 completed Not Available Not Available [...] Lf unit/0.5 mL intramuscul ar suspension [facility] 10/26 completed Not Available Not Available [...] mcg x 4)/0.5 mL IM syringe [facility] 01/06 completed Not Available Not Available Not Available Vitals Date Recorded Body height Body mass index (BMI) Body weight Heart rate Oxygen saturation Oxygen saturation in Arterial blood by Pulse oximetry Systolic blood pressure Diastolic blood pressure Provider Name and Address Organization Details Last Updated DateTime 3 172.72 cm 20.2 kg/m2 52414.7 9 g 65 /min 98 % 98 % 128 mm[Hg] 78 mm[Hg] [facility] 3 09:39:32 Date Recorded Body height Body mass index (BMI) Body weight Heart rate Oxygen saturation Oxygen saturation in Arterial blood by Pulse oximetry Systolic blood pressure Diastolic blood pressure Provider Name and Address Organization Details Last Updated DateTime 3 172.72 cm 25.4 kg/m2 02183.9 3 g 74 /min 98 % 98 % 138 mm[Hg] 78 mm[Hg] Catarina Leon [facility] 3 09:24:37 Date Recorded Body height Body mass index (BMI) Body weight Heart rate Oxygen saturation Oxygen saturation in Arterial blood by Pulse oximetry Systolic blood pressure Diastolic blood pressure Provider Name and Address Organization Details Last Updated DateTime 5 172.72 cm 20.4 kg/m2 69259.3 8 g 75 /min 97 % 97 % 140 mm[Hg] 90 mm[Hg] Neisha Ribeiromond [facility] 5 08:59:01 Date Recorded Body height Systolic blood pressure Diastolic blood pressure Provider Name and Address Organization Details Last Updated DateTime 01/07/2025 172.72 cm 120 mm[Hg] 78 mm[Hg] Bailee Orlando [facility] 01/07/2025 16:17:10 Social History Question Answer Notes LastModified by [employer] Details LastModified Time Tobacco Smoking Status Former Smoker Not Available [facility] 06/30/2020 03:36:24 What Was The Date Of Your Most Recent Tobacco Screening? 11/25/2024 [email or web address] Information not available 11/25/2024 How Many Years Have You Smoked Tobacco? 25 [id number] Information not available 06/30/2020 Sex: Unknown Functional Status Question Answer Note LastModified by [employer] Details LastModified Time Do you or have you ever used any other forms of tobacco or nicotine? No [email or web address] Information not available 11/21/2022 Do you or have you ever used smokeless tobacco? Never used smokeless tobacco [id number] Information not available 06/30/2020 Do you or have you ever used e-cigarettes or vape? Never used electronic cigarettes [id number] Information not available 06/30/2020 Mental Status None recorded. Family History Relationship Description Onset Age of this Age Resolved Age Notes LastModified by Organization Details LastModified Time Father Cerebrovascu lar disease [email or web address] Not available 0 01/07/2025 15:55:54 Father Diabetes mellitus [email or web address] Not available 2018 08:25:27 Father Coronary arterioscler osis [email or web address] Not available 06/03 10:07:24 Mother Diabetes mellitus [email or web address] Not available 2018 08:25:40 Mother Cerebrovascu lar disease [email or web address] Not available 0 01/07/2025 15:55:54 Mother Myocardial infarction [email or web address] Not available 02/2019 10:07:15 Medical History Condition Response Coronary Artery Disease N Other N Gout N Kidney Stones N Blood Diseases N Breast Cancer N Blood Transfusion N Lung Disease N COPD N Depression N Defects or Inherited Disease N Anxiety [...] N Thyroid Problems N GI Problems N Skin Problems N Eating Disorder N Anemia N MRSA exposure N Constipation N Mental Illness N Ovarian Cancer N Diabetes N Seizures/Epilepsy N Tuberculosis N Congestive Heart Failure (CHF) N Eczema N Diverticulitis N Abuse/Domestic Violence N Asthma N Reflux/GERD N Hepatitis N Heart Disease N Pulmonary Embolism N Hypertension N Chicken Pox N Autism Spectrum Disorder (ASD) N Osteoporosis N Immunizations Vaccine Type Date Status Note Provider Nam e and Address Organization Details Recorded Time Influenza, split virus, quadrivalent, preservative 8 completed Not Available [facility] 10/22/2020 19:17:56 zoster, unspecified formulation [address] [facility] 07/24/2024 08:19:22 influenza, unspecified formulation [address] [facility] 07/24/2024 08:19:31 Influenza, split virus, quadrivalent, preservative 9 completed Not Available [facility] 10/22/2020 19:17:56 Td(adult) unspecified formulation 0 completed Not Available [facility] 10/22/2020 19:17:56 Influenza, split virus, quadrivalent, preservative 0 completed Not Available [facility] 10/22/2020 19:17:56 pneumococcal polysaccharide PPV23 0 completed Not Available [facility] 10/22/2020 19:17:56 Past Encounters Encounter ID Performer Location Encounter Start Date Encounter Closed Date Diagnosis/Indication Diagnosis SNOMED-CT Code Diagnosis ICD10 Code Diagnosis Note [id number] Carlo Jones [facility] [address] [place] [address] 05/15/2018 10:45:46 05/15/2018 11:19:50 Pleurisy 578522246 R09.1 s/p LRI ? Leukocytosis 643980233 D 72.829 again possible infection pneumoniti s Pneumonitis 762836776 J9 5.851 possible infection pneumoniti s seen on CTA of chest vs atelectasi s [id number] Carlo Jones [facility] [address] [facility],[place] [address] 06/03/2019 09:33:01 06/03/2019 10:25:22 Microscopic hematuria 361163829 R31.21 has had negative work up in 2016 Pain of mu ltiple joints 42305117 M25.50 will send for second opinion Adult heal th examination 629897915 Z00.00 first year on medicare HCP ppw Hypercholesterolemia 136 27271 E78.00 Vitamin D deficiency 347 68189 E55.9 Hypothyroidism 23389245 E03.9 Active or passive immunization 636079638 Z23 will send rx Skin lesion 36782423 L98 .9 [id number] Carlo Jones [facility] [address],[place] [address] 12/03/2019 08:50:06 12/03/2019 09:13:00 Hypertensive disorder 61593659 I10 Hypercholesterolemia 136 52622 E78.00 Vitamin D deficiency 347 72550 E55.9 Hypothyroidism 48438244 E03.9 [id number] Carlo Jones [facility] [address],[place] [address] 06/05/2020 08:49:41 06/05/2020 09:36:37 Active or passive immunization 977435661 Z23 sent tdap to pharmacy Adult heal th examination 584262271 Z00.00 BP great will check BP needs XR ELLIOTT r/o fx Ankle pain 000990530 M25 .579 needs XR for possible broken ankle Screening for cardiovascular system disease 851027294 Z13.6 bw, hasn't had bw in year [id number] Carlo Jones [facility] [address], [facility] [facility] [place] [address] 10/26/2021 09:12:44 10/27/2021 10:44:21 Hypercholesterolemia 03260548 E78.01 will fu with blood work Hypertensive disorder 38 016888 I10 had not been taking his BP medication because he ran outwill not qualify this as a need to change his medication s Anxiety 67879521 F41.1 stable Screening for malignant neoplasm of prostate 925881350 Z12.5 will recheck PSA [id number] Carlo Jones [facility] [address], [place] [address] 05/04/2022 08:25:30 05/04/2022 11:20:48 Hypercholesterolemia 45720649 E78.01 will fu with blood work Hypertensive disorder 38 165759 I10 taking all his medication s again and states his BP has been down 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 284097982 E06.3 stable Mild recur rent major depression 76119954 F33.0 feels great on the venlafaxin e, did agree to try a higher dose since he feels it wears off too soon [id number] Carlo Jones [facility] [address],[place] [address] 11/21/2022 09:18:07 11/21/2022 15:15:56 Hypercholesterolemia 77296726 E78.01 will f/u with blood work Hypertensive disorder 38 512216 I10 taking all his medication s again and states his BP has been down Tobacco de pendence syndrome 50806749 F17.290 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 788894293 E06.3 stable Impaired f asting glycemia 879045644 R73.01 will set up with recheck A1c Screening for malignant neoplasm of prostate 041340198 Z12.5 will recheck PSA level Basal cell carcinoma of skin 042019574 C44.319 will set up with dermatolog y Mild recur rent major depression 30721241 F33.0 stable [id number] [facility] [address],[place] [address] 08/04/2023 09:16:07 08/04/2023 11:41:27 Hypothyroidism 78317795 E03.8 will set up with screening for the thyroid Mass of neck 996548609 R 22.1 will set up with US to r/o mass vs cyst vs LN Skin lesion 73744149 L98 .9 will set up with [facility] for possible basal cell vs skin lesion related to UV exposure [id number] [facility] [address],[place] [address] 11/25/2024 08:50:27 11/25/2024 10:21:00 Diarrhea 24973490 R19.7 will set up for colonoscop y and additional lab work Hypothyroidism 81686396 E03.8 will set up with screening for the thyroid Hypercholesterolemia 136 01570 E78.01 will f/u with blood work Screening for malignant neoplasm of prostate 723502388 Z12.5 will recheck PSA level Benign pro static hyperplasia 476714979 N40.1 agreed [id number] [facility] [address],[place] [address] 01/07/2025 15:55:46 01/07/2025 16:44:49 Retention of urine 665208454 R33.9 has procedure scheduled with urology [facility] hypothyroidism 37677468 E03.8 recheck thyroid given hoarseness of voice, fatigue, rash, headache Fatigue 41732392 R53.83 will set up check to r/o tick borne illness Eruption 229933321 R21 macular rash along the top of his backstated it started as a nez perce on his lower back that he remembers Health Concerns Section Related Observation LastModified by Organization Detai ls LastModified Time None Recorded Concern Status LastModified by Organization Details LastModified Time None Recorded Advance Directives Directive None Recorded Payers Encounter Date Sequence Insurance Name Policy Number Policy Zamora Covered Member ID Zamora Member ID Guarantor Name 05/04/2022 1 [place] [employer] Raimundo Maravilla [id number] Raimundo Leung [place] 05/04/2022 2 [place] Raimundo Castellanosose [id number] Raimundo Leung [place] 11/21/2022 1 [place] [employer] Raimundo Castellanosose [id number] Raimundo Leung [place] 11/21/2022 2 [place] Raimundo Castellanosose [id number] Raimundo Leung [place] 08/04/2023 1 [place] [employer] Raimundo Castellanosose [id number] Raimundo Leung [place] 08/04/2023 2 [place] Raimundo Maravilla [id number] Raimundo Leung [place] 11/25/2024 1 [place] [employer] Raimundo Castellanosose [id number] Raimundo Leung [place] 11/25/2024 2 [place] Raimundo Maravilla [id number] Raimundo Leung [place] 01/07/2025 1 [place] [facility] Raimundo Castellanosose [id number] Raimundo Leung [place] 01/07/2025 2 [place] [facility] Raimundo Maravilla [id number] Raimundo Maravilla Notes Date Note Type Note Provider Name a nd Address Organization Details Recorded Time 05/04/2022 text/html 6 mos fu telemed phone callpatient consents to phone call MDD: the patient is reporting that he is doing really welldiscussed increasing his venlafaxine as it works really well, but fades off at the end of the daywill boost up to the next dose, 150 mg ER and send to alt pharmacy in the meantime as his pharmacy is closed for roof repairs HTN: BP at home is 120s/80s which is excellent now that he is taking his meds againrecently refilled, no side effects hypothyroidism: stable HLD: will recheck prior to next appt JOVAN WILLIS [address] [place] [address], [place], [address], [facility] 05/04/2022 09:37:51 11/21/2022 text/html f/u [...] cell on his face, agreed to derm [email or web address]: needs recheck everything else if good, patient has no concerns today JOVAN WILLIS [address] [place], [address], [facility] 11/21/2022 10:00:39 08/04/2023 text/html c/o [...] with pinkish colorwill set up with SAVANA Gateseds biopsy for screening for basal cell JOVAN WILLIS [address] [place], [address], [facility] 08/04/2023 09:37:01 11/25/2024 text/html f/u appt the patient reports that he has been having bowel changes for the past few months (patient hasn't been seen for two years)the patient reports that's he has mucus in his stool, it is often loosethe patient denies blood in the stool the patient's last colonoscopy [facility] through [facility] 13 years agoneeds f/u with updated [...] no new allergies to medications JOVAN WILLIS [address] [place], [address], [facility] 11/25/2024 09:19:19 01/07/2025 text/html c/o headache, ra sh, hoarseness of voice, fatigue subclinical hypothyroidism: the patient will set up repeat lab workwill see if his thyroid is overreacting again since it just was elevated for a few weeks before it came back to normal values rash upper back, says it started as a spot lower down before it broke out across his backgeneral fatigue and headaches as well has uro fu for his procedure soon cannot exclude tick born illness based on symptomatology eitherwill add tick panels inwill f/u with patient after results come in JOVAN WILLIS [address] [place] [address], [place], [address], [facility] 01/07/2025 16:43:31
--- OUTSIDE RECORDS SUMMARY | 2025-01-08 07:42 | XMS_ITS | Continuity of Care Document ---
Author Organization [facility], [facility] Address [address] [facility] [place] [address] [place] [address] Assessment No assessment recorded. Plan of Treatment Reminders Order Date Submit Date Provider Last Modified By Organization Details Last Modified Time Details Appointments None recorded. Lab TSH + free T4, serum 2024 [facility], [address] [place] [address], [id number], 5 16:38:45 thyroid peroxidase (tpo) Ab, serum 2024 [facility], [address] [place] [address], [id number], 5 16:38:45 T3, total, serum 2024 025 [facility], [address] [place] [address], [id number], 5 16:38:45 tsi (thyroid-s timulating immunoglob ulin), serum 2024 025 [facility], [address] [place] [address], [address], 5 16:38:45 ESR (erythrocy te sedimentat ion rate), blood 2024 025 [facility], [address] [place] [address], [id number], 5 16:38:45 C-reactive protein, quantitati ve, serum or plasma 2024 025 [facility], [address] [place] [address], [id number], 5 16:38:45 lyme disease igg+igm, serum, reflex western blot 2024 025 [facility], [address] [place] [address], [address], 5 16:38:45 anaplasma phagocytop hilum + ehrlichia chaffeensi s IgG + IgM panel, serum 2024 025 [facility], [address] [place] [address], [address], 5 16:38:45 Referral None recorded. Procedures None recorded. Surgeries None recorded. Imaging None recorded. Medication Orders None recorded. Patient TargetsNo targets recorded. Patient InstructionsNo instructions recorded. Reason for Referral None Reported. 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 Urology work up Not Available [facility] 19:17:56 Coronary occlusio n 05582741 Active 2017 RCA s/p sent 2006 Not Available [facility] 19:17:56 Myocardi al infarcti on 69792856 Active 2018 Not Available [facility] 19:17:56 Mild recurren t major depressi on 16236003 Active 2018 Not Available [facility] 19:17:56 Impaired fasting glycemia 877828934 Active 2022 JOVAN WILLIS [address] [place], [address], [facility] 3 09:54:00 Basal cell carcinom a of skin 444077805 Active 2022 JOVAN WILLIS [address] [place], [address], [facility] 3 09:55:37 Hypothyr oidism 34424543 Active 2022 JOVAN WILLIS [address] [place], [address], [facility] 3 08:57:12 Hyperkal emia 00260488 Active 2022 JOVAN WILLIS [address] [place], [address], [facility] 3 08:57:19 Mass of neck 122375668 Active 2022 JOVAN WILLIS [address] [place], [address], [facility] 3 09:30:59 Skin lesion 57799291 Active 2022 JOVAN WILLIS [address] [place], [address], [facility] 3 09:33:54 Carotid artery stenosis 73387661 Active 2022 JOVAN WILLIS [address] [place] [address], [address], [facility] 3 13:28:52 Diarrhea 23939091 Active 2024 JOVAN WILLIS [address] [place] [address], [address], [facility] 5 09:04:23 Benign prostati c hyperpla clinton 682289398 Active 2024 JOVAN WILLIS [address] [place] [address], [address], [facility] 5 09:06:51 Anxiety 05234477 Active 2024 JOVAN WILLIS [address] [place] [address], [address], [facility] 5 10:00:54 Retentio n of urine 013200558 Active 2024 JOVAN WILLIS [address] [place] [address], [address], [facility] 5 16:25:53 Subclini sharla hypothyr oidism 50990089 Active 2024 JOVAN WILLIS [address] [place] [address], [address], [facility] 5 16:27:30 Fatigue 84190448 Active 2024 JOVAN WILLIS [address] [place] [address], [address], [facility] 5 16:31:53 Eruption 054348204 Active 2024 JOVAN WILLIS [address] [place] [address], [address], [facility] 5 16:34:22 Problem Notes None recorded. Procedures Surgical History Date Name Laterality Status Provider Name and Address Organization Details Recorded Time 08/28/19 placement of stent completed Mary Carmen Rose [facility] 06/03/2019 08:26:33 hemorrhoid operation completed Mary Carmen Rose [facility] 06/03/2019 08:28:08 Thoracostomy w/flap drainage completed November [facility] [address], [place], [address], [facility] 06/03/2019 10:09:53 Imaging Results None recorded. Procedure Notes None recorded. Medical Equipment None [...] 3 25 mcg/0.5 mL injection syringe [facility] 10/26 completed Not Available Not Available Not [...] Lf unit/0.5 mL intramuscul ar suspension [facility] 10/26 completed Not Available Not Available Not [...] x 4)/0.5 mL IM syringe [facility] 01/06 completed Not Available Not Available Not Available Vitals Date Recorded Body height Systolic blood pressure Diastolic blood pressure Provider Name and Address Organization Details Last Updated DateTime 01/07/2025 172.72 cm 120 mm[Hg] 78 mm[Hg] [facility] 01/07/2025 16:17:10 Social History Question Answer Notes LastModified by [employer] Details LastModified Time Tobacco Smoking Status Former Smoker Not Available [facility] 06/30/2020 03:36:24 What Was The Date Of Your Most Recent Tobacco Screening? 11/25/2024 [email or web address] Information not available 11/25/2024 How Many Years Have You Smoked Tobacco? 25 [id number] Information not available 06/30/2020 Sex: Unknown Functional Status Question Answer Note LastModified by [employer] ion Details LastModified Time Do you or have you ever used any other forms of tobacco or nicotine? No [email or web address] Information not available 11/21/2022 Do you or have you ever used smokeless tobacco? Never used smokeless tobacco [id number] Information not available 06/30/2020 Do you or have you ever used e-cigarettes or vape? Never used electronic cigarettes [id number] Information not available 06/30/2020 Mental Status None recorded. Family History Relationship Description Onset Age of this Age Resolved Age Notes LastModified by Organization Details LastModified Time Father Cerebrovascu lar disease [email or web address] Not available 0 01/07/2025 15:55:54 Father Diabetes mellitus [email or web address] Not available 2018 08:25:27 Father Coronary arterioscler osis [email or web address] Not available 06/03 10:07:24 Mother Diabetes mellitus [email or web address] Not available 2018 08:25:40 Mother Cerebrovascu lar disease [email or web address] Not available 0 01/07/2025 15:55:54 Mother Myocardial infarction [email or web address] Not available 02/2019 10:07:15 Medical History Condition Response Coronary Artery Disease N Other N Gout N Blood Diseases N Kidney Stones N Blood Transfusion N Breast Cancer N Depression N COPD N Lung Disease N Defects or Inherited Disease N Anxiety Disorder N Muscle, Joint, or Bone Problems N Obesity N Vision or Eye Problems N Arthritis N Polyps N Infertility N Mental Disorder N Cancer N Varicosities N Stroke N Endometriosis N Bladder or Kidney Problems [...] Disease N Pulmonary Embolism N Hypertension N Osteoporosis N Chicken Pox N Autism Spectrum Disorder (ASD) N Immunizations Vaccine Type Date Status Note Provider Nam e and Address Organization Details Recorded Time Influenza, split virus, quadrivalent, preservative 8 completed Not Available [facility] 10/22/2020 19:17:56 zoster, unspecified formulation 4 completed Bailee navarro [facility] 07/24/2024 08:19:22 influenza, unspecified formulation 4 completed Bailee navarro [facility] 07/24/2024 08:19:31 Influenza, split virus, quadrivalent, preservative 10/02/201 9 completed Not Available [facility] 10/22/2020 19:17:56 Td(adult) unspecified formulation 0 completed Not Available [facility] 10/22/2020 19:17:56 Influenza, split virus, quadrivalent, preservative 0 completed Not Available [facility] 10/22/2020 19:17:56 pneumococcal polysaccharide PPV23 0 completed Not Available [facility] 10/22/2020 19:17:56 Past Encounters Encounter ID Performer Location Encounter Start Date Encounter Closed Date Diagnosis/Indication Diagnosis SNOMED-CT Code Diagnosis ICD10 Code Diagnosis Note [id number] Carlo Jones, [facility] [address] [facility],[place] [address] 01/07/2025 15:55:46 01/07/2025 16:44:49 Retention of urine 179998413 R33.9 has procedure scheduled with urology [facility] hypothyroidism 60727389 E03.8 recheck thyroid given hoarseness of voice, fatigue, rash, headache Fatigue 35455250 R53.83 will set up check to r/o tick borne illness Eruption 435805810 R21 macular rash along the top of his backstated it started as a council on his lower back that he remembers Health Concerns Section Related Observation LastModified by Organization Detai ls LastModified Time None Recorded Concern Status LastModified by Organization Details LastModified Time None Recorded Payers Encounter Date Sequence Insurance Name Policy Number Policy Zamora Covered Member ID Zamora Member ID Guarantor Name 01/07/2025 1 [place] [employer] Raimundo Maravilla [id number] Raimundo Maravilla 01/07/2025 2 [place] Raimundo Maravilla [id number] Raimundo Maravilla Notes Date Note Type Note Provider Name a nd Address Organization Details Recorded Time 01/07/2025 text/html c/o headache, ra sh, hoarseness [...] exclude tick born illness based on symptomatology eitherwitracy add tick panels inwitracy f/u with patient after results come in JOVAN WILLIS [address] [place] [address], [place], [address], [facility] 01/07/2025 16:43:31
[2025-01-08 14:29] LABS: Thyroid Stimulating Hormone 3.27 uIU/mL (0.32-4.0)
[2025-01-08 14:34] LABS: C Reactive Protein < 0.04 mg/dL (< or = 0.50)
[2025-01-08 14:39] LABS: Erythrocyte Sedimentation Rate 2 MM/HR (0-15)
[2025-01-09 06:14] LABS: Immunoglobulin M 119 mg/dL (50-300)
[2025-01-09 06:54] LABS: Lyme Abs Screen <0.90 index
[2025-01-09 07:58] LABS: Triiodothyronine T3 Total 99 ng/dL (76-181)
[2025-01-09 22:59] LABS: Thyroid Peroxidase Antibodies 52 IU/mL (<9)
[2025-01-13 02:53] LABS: A. Phagocytophilum Ab IgG <1:64 (<1:64); A. Phagocytophilum Ab IgM <1:20 (<1:20); E. Chaffeensis Ab IgG <1:64 (<1:64); E. Chaffeensis Ab IgM <1:20 (<1:20)
[2025-01-13 15:48] LABS: Thyroid Stimulating Immunoglob <89 % baseline (<140)
== END 2025-01-08 07:40 | disposition home or self-care (01) ==
LOC: HO.MANLDS 07:39
PROVIDERS: Visit Provider Physician Assistant
DX: E03.8 Other specified hypothyroidism (principal); R53.83 Other fatigue
CPT/HCPCS: 36415; 82784; 84439; 84443; 84445; 84480; 85652; 86140; 86376; 86617; 86618; 86666

== ENCOUNTER 2025-06-30 11:52 | Outpatient (REF) | payer MEDICARE, MEDICAID, SELFPAY ==
--- OUTSIDE RECORDS SUMMARY | 2025-06-30 15:08 | XMS_ITS | Encounter Summary ---
Author Organization [facility] Address [address] [place] [address] Care Team Providers Care Baccarat Dealer Name Role Phone Carlo Jones DO Primary Care Provider Encounter Details Date Type Department Care Team (Late st Contact Info) Description 04/17/2025 Lab Requisition [facility] - Main Lab [address] [facility] [place] [address] Cassie Christian PA [address] [facility] [address] [place] [address] Retention of urine, unspecified Social History Tobacco Use Types Packs/Day Years Used Date Smoking Tobacco: Never Assessed Sex and Gender Information Value Date Recorded Sex Assigned at Not on file Legal Sex Male 1:16 PM EDT Gender Identity Not on file Sexual Orientation Not on file documented as of this encounter Plan of Treatment Not on file documented as of this encounter Procedures Procedure Name Priority Date/Time Associated Diagnosis Comments BACTERIAL IDENTIFICATION AND SUSCEPTIBILITY, AEROBIC Routine 04/16/2025 12:00 AM EDT Retention of urine, unspecified documented in this encounter Results * (ABNORMAL) Bacterial identification and susceptibility, aerobic (04/16/2025 12:00 AM EDT) Culture, Bacterial ID and Sensitivity Enterobacter cloacae complex(A) ADARSH 04/18/2025 10:[address] [facility] Comment: This is an edited result. Previous organism was Gram negative bacilli on 04/17/2025 at 1357 EDT. Other Urine specimen from urinary conduit / Unknown 04/16/2025 04/17/2025 1:31 PM EDT Narrative Organism Antibiotic Method Susceptibility Enterobacter cloacae complex Amoxicillin/Clavulanate ADARSH >=32 ug/ml: Resistant Enterobacter cloacae complex Cefoxitin ADARSH >=64 ug/ml: Resistant Enterobacter cloacae complex Ceftazidime ADARSH 4 ug/ml: Susceptible Enterobacter cloacae complex Cefepime ADARSH 0.25 ug/ml: Susceptible Enterobacter cloacae complex Meropenem ADARSH <=0.25 ug/ml: Susceptible Enterobacter cloacae complex Amikacin ADARSH 2 ug/ml: Susceptible Enterobacter cloacae complex Gentamicin ADARSH <=1 ug/ml: Susceptible Enterobacter cloacae complex Ciprofloxacin ADARSH <=0.06 ug/ml: Susceptible Enterobacter cloacae complex Levofloxacin ADARSH <=0.12 ug/ml: Susceptible Enterobacter cloacae complex Nitrofurantoin ADARSH >=512 ug/ml: Resistant Enterobacter cloacae complex Trimethoprim/Sulfamethoxazo le ADARSH <=20 ug/ml: Susceptible us Cassie [facility] MICROBIOLOGY - GENERAL ORDER JUANCARLOS Final Result [facility] [address] [place] [address], documented in this encounter Visit Diagnoses Diagnosis Retention of urine, unspecified documented in this encounter Care Teams Baccarat Dealer Relationship Specialty Start Date End Date Carlo Jones DO [address] [facility] [address] [place], [place] PCP - General Internal Medicine 04/17/25 documented as of this encounter
--- OUTSIDE RECORDS SUMMARY | 2025-06-30 15:08 | XMS_ITS | Clinical Summary ---
Author Organization [address] [facility] Address [address] [place] [address] Phone Care Team Providers Care Health Aid Name Role Phone Carlo Jones DO Primary Care Provider [phone] Encounters Date Type Department Care Team Description 04/17/2025 Lab Requisition [facility] - Main Lab [address] [facility] [place] [address] Cassie Christian PA Retention of urine, unspecified from Last 3 Months Social History Tobacco Use Types Packs/Day Years Used Date Smoking Tobacco: Never Assessed Sex and Gender Information Value Date Recorded Sex Assigned at Not on file Legal Sex Male 1:16 PM EDT Gender Identity Not on file Sexual Orientation Not on file Plan of Treatment Health Maintenance Due Date Last Done Comments Colorectal Cancer Screening: Colonoscopy 1961 DTaP,Tdap,and Td Vaccines (1 - Tdap) 02/29/1980 Pneumococcal Vaccine: 50+ Ye ars (1 of 1 - PCV) 2011 Zoster Vaccines (1 of 2) 2011 Depression Screening 08/28/2024 Cholesterol Screening (Lipid Panel) 04/17/2025 HIV Screening 04/17/2025 Hepatitis C Screening 04/17/2025 Medicare Annual Wellness Visit 04/17/2025 Social Influencers of Health Screening 04/17/2025 COVID-19 Vaccine ( - 2023-2 5 season) 2025 Influenza Vaccine (#1) 2025 RSV Immunization Adult Patie nts (1 - 1-dose 75+ series) 02/29/2036 HIB Vaccines Aged Out No longer eligi ble based on patient's age to complete this topic HPV Vaccines Aged Out No longer eligi ble based on patient's age to complete this topic Hepatitis A Vaccines Aged Out No long er eligible based on patient's age to complete this topic Hepatitis B Vaccines Aged Out No long er eligible based on patient's age to complete this topic IPV Vaccines Aged Out No longer eligi ble based on patient's age to complete this topic MMR Vaccines Aged Out No longer eligi ble based on patient's age to complete this topic Meningococcal ACWY Vaccine Aged Out N o longer eligible based on patient's age to complete this topic Meningococcal B Vaccine Aged Out No l onger eligible based on patient's age to complete this topic RSV Immunization Patients Un stefan 20 months Aged Out No longer eligible b ased on patient's age to complete this topic Varicella Vaccines Aged Out No longer eligible based on patient's age to complete this topic Procedures Procedure Name Priority Date/Time Associated Diagnosis Comments BACTERIAL IDENTIFICATION AND SUSCEPTIBILITY, AEROBIC Routine 04/16/2025 12:00 AM EDT Retention of urine, unspecified from Last 3 Months Results * (ABNORMAL) Bacterial identification and susceptibility, aerobic (04/16/2025 12:00 AM EDT) Culture, Bacterial ID and Sensitivity Enterobacter cloacae complex(A) ADARSH 04/18/2025 10:19 AM EDT [facility] Comment: This is an edited result. [...] MICROBIOLOGY - GENERAL ORDER JUANCARLOS Final Result [facility] [address] [address], [place] [phone] from Last 3 Months Insurance MEDICARE MEDICAID - [place] Care Teams Health Aid Relationship Specialty Start Date End Date Carlo Jones DO [address] [facility] [address] [place], [place] PCP - General Internal Medicine 04/17/25
--- OUTSIDE RECORDS SUMMARY | 2025-06-30 15:08 | XMS_ITS | Data Portability ---
Author Organization [facility], Telehealth Patient Home Address [address] [place] [address] Assessment No assessment recorded. Plan of Treatment Reminders Order Date Submit Date Provider Last Modified By Organization Details Last Modified Time Details Appointments FOLLOW UP 15 2024 11:15A JOVAN MARIE Not available Not available Not available Lab PSA, serum or plasma 2024 025 [facility], [address] [place] [address], [id number], 06/30/2025 11:46:43 vitamin B12 + folate, serum or blood 2024 025 [facility], [address] [place] [address], 12245, 06/30/2025 11:45:56 vitamin D, 25-hydrox y, total, serum 2024 025 [facility], [address] [place] [address], 28553, 06/30/2025 11:45:56 hemoglobi n A1c, QN, blood 2024 025 [facility], [address] [place] [address], [id number], 06/30/2025 11:45:56 CBC w/ auto diff 2024 025 [facility], [address] [place] [address], [id number], 06/30/2025 11:45:56 iron + TIBC + ferritin, serum 2024 [facility], [address] [place] [address], 73023, 06/30/2025 11:45:56 TSH + T4, serum 2024 [facility], [address] [place] [address], 23194, 06/30/2025 11:45:56 TSH + free T4, serum 2024 [facility], [address] [place] [address], 50444, 01/09/2025 13:11:52 thyroid peroxidas e (tpo) Ab, serum 2024 [facility], [address] [place] [address], 33742, 01/07/2025 16:38:45 T3, total, serum 2024 [facility], [address] [place] [address], 39177, 01/07/2025 16:38:45 tsi (thyroid- stimulati ng immunoglo bulin), serum 2024 [facility], [address] [place] [address], 57540, 01/14/2025 11:41:05 ESR (erythroc yte sedimenta tion rate), blood 2024 [facility], [address] [place] [address], 28864, 01/07/2025 16:38:45 C-reactiv e protein, quantitat edgard, serum or plasma 2024 025 [facility], [address] [place] [address], 71034, 01/07/2025 16:38:45 lyme disease igg+igm, serum, reflex western blot 2024 [facility], [address] [place] [address], 48461, 01/07/2025 16:38:45 anaplasma phagocyto philum + ehrlichia chaffeens is IgG + IgM panel, serum 2024 025 [facility], [address] [place] [address], 52291, 01/13/2025 12:00:15 C reactive protein, QN, serum or plasma 2024 025 [facility], [address] [place] [address], 54483, 11/25/2024 09:17:21 amylase + lipase, serum 2024 025 [facility], [address] [place] [address], 25435, 11/25/2024 09:17:21 ESR (erythroc yte sedimenta tion rate), blood 2024 025 [facility], [address] [place] [address], 97455, 11/25/2024 09:17:21 iron + TIBC + ferritin, serum 2024 025 [facility], [address] [place] [address], 65261, 11/26/2024 11:18:33 gamma-glu tamyl transfera se (ggt), serum 2024 025 [facility], [address] [place] [address], 29013, 11/25/2024 09:17:21 PSA, serum or plasma 2024 025 [facility], [address] [place] [address], 12112, 11/25/2024 09:09:34 lipid panel, blood 2024 025 [facility], [address] [place] [address], 28758, 11/25/2024 09:09:34 CMP, serum or plasma 2024 025 [facility], [address] [place] [address], 09199, 11/25/2024 09:09:34 CBC w/ auto diff 2024 025 [facility], [address] [place] [address], 34793, 11/25/2024 09:09:34 hemoglobi n A1c, QN, blood 2024 025 [facility], [address] [place] [address], 40626, 11/25/2024 09:09:34 TSH + free T4, serum 2024 025 [facility], [address] [place] [address], 22161, 12/25/2024 13:10:04 urinalysi s complete, reflex culture 2024 025 [facility], [address] [place] [address], 49340, 11/25/2024 09:09:34 TSH + free T4, serum 2022 023 [facility], [address] [place] [address], [place], [address], 08/04/2023 09:30:17 Referral gastroent erologist referral 2024 025 [facility], [address] [place], [address], 11/26/2024 09:06:47 dermatolo gist referral 2022 023 [facility], [address] [place], [address], 08/08/2023 08:58:42 Procedures None recorded. Surgeries None recorded. Imaging US, neck, soft tissue 2022 023 [facility], [address] [place], [address], 08/08/2023 08:58:12 Medication Orders triamcino lone acetonide 0.1 % topical cream 2024 025 [facility] #[id number], [address] [place], [address], 06/30/2025 11:44:41 Patient TargetsNo targets recorded. Patient InstructionsNo instructions recorded. Reason for Referral Informatics Spec Referral for S kin lesion ? 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 [address] [place], [address], 08/11/2023 13:28:20 08/18/20 23 08/18/2023 US, duple x, carot id arter y No observ ation record ed. [email or web address] [facility] [address] [place], [address], 08/18/2023 14:36:42 12/04/19 25 12/03/2024 CT, abdom en + pelvi s, w/ contr ast No observ ation record ed. [email or web address] [facility] (Emergency Room) [address] [place], [address], 12/03/2024 08:16:10 01/10/20 25 01/09/2025 CT, abdom en + pelvi s, w/o contr ast No observ ation record ed. [email or web address] [facility] (Emergency Room) [address] [place], [address], 01/09/2025 09:21:35 Result Notes None recorded. 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 Urology work up Not Available [facility] 19:17:56 Coronary occlusio n 54224595 Active 2017 RCA s/p sent 2006 Not Available [facility] 19:17:56 Myocardi al infarcti on 22611052 Active 2018 Not Available [facility] 19:17:56 Mild recurren t major depressi on 88005705 Active 2018 Not Available [facility] 19:17:56 Impaired fasting glycemia 778091596 Active 2022 JOVAN WILLIS [address] [place], [address], [facility] 3 09:54:00 Basal cell carcinom a of skin 495035701 Active 2022 JOVAN WILLIS [address] [place], [address], [facility] 3 09:55:37 Hypothyr oidism 36235254 Active 2022 OJVAN WILLIS [address] [place], [address], [facility] 3 08:57:12 Hyperkal emia 74346115 Active 2022 JOVAN WILLIS [address] [place], [address], [facility] 3 08:57:19 Mass of neck 584878957 Active 2022 JOVAN WILLIS [address] [place], [address], [facility] 3 09:30:59 Skin lesion 85201349 Active 2022 JOVAN WILLIS [address] [place], [address], [facility] 3 09:33:54 Carotid artery stenosis 11959891 Active 2022 JOVAN WILLIS [address] [place], [address], [facility] 3 13:28:52 Diarrhea 53043555 Active 2024 JOVAN WILLIS [address] [place] [address], [address], [facility] 5 09:04:23 Benign prostati c hyperpla clinton 162558884 Active 2024 JOVAN WILLIS [address] [place] [address], [address], [facility] 5 11:45:00 Anxiety 43592929 Active 2024 JOVAN WILLIS [address] [place] [address], [address], [facility] 5 10:00:54 Retentio n of urine 789466188 Active 2024 JOVAN WILLIS [address] [place] [address], , [facility] 5 16:25:53 Subclini sharla hypothyr oidism 18817708 Active 2024 JOVAN WILLIS [address] [place] [address], , [facility] 5 16:27:30 Fatigue 16710382 Active 2024 JOVAN WILLIS [address] [place] [address], , [facility] 5 16:31:53 Eruption 727104021 Active 2024 JOVAN WILLIS [address] [place] [address], , [facility] 5 16:34:22 Primary insomnia 9964377 Active 2024 JOVAN WILLIS [address] [place] [address], , [facility] 5 11:58:43 Severe anxiety (panic) 50624549 Active 2024 JOVAN WILLIS [address] [place], [address], [facility] 13:28:54 Seborrhe ic dermatit is 14354757 Active 2024 JOVAN WILLIS [address] [place], [address], [facility] 11:38:44 Inflamma tory dermatos is 522128156 Active 2024 JOVAN WILLIS [address] [place], [address], [facility] 11:38:52 [place] stain of skin 000067040 Active 2024 JOVAN WILLIS [address] [place], [address], [facility] 11:48:26 Problem Notes None recorded. Procedures Surgical History Date Name Laterality Status Provider Name and Address Organization Details Recorded Time 08/28/19 placement of stent completed [facility] 06/03/2019 08:26:33 hemorrhoid operation completed [facility] 06/03/2019 08:28:08 Thoracostomy w/flap drainage completed November Paula [facility] [address] [place], [address], [facility] 06/03/2019 10:09:53 Imaging Results None [...] TAKE 1 TABLET BY MOUTH EVERY DAY 06/30 completed Not Available Not Available Not Available venlafaxine ER 37.5 mg capsule,ext ended release 24 hr TAKE 1 CAPSULE BY MOUTH EVERY DAY FOR 7 DAYS 02/03 completed Not Available Not Available Not Available venlafaxine ER 75 mg capsule,ext ended [...] completed Not Available Not Available Not Available sulfamethox azole 800 mg-trimetho prim 160 mg tablet TAKE 1 TABLET BY MOUTH TWICE A DAY 06/27 completed Not Available Not Available Not Available triamcinolo ne acetonide 0.1 % topical cream APPLY A THIN LAYER TO THE AFFECTED AREA(S) BY TOPICAL ROUTE 2 TIMES PER DAY 2024 active Not Available Not Available Not Avai lable flaxseed oil 1,000 mg capsule Take 1 [...] Not Available Not Available No t Available zolpidem 5 mg tablet TAKE 1 TABLET (5 MG TOTAL) BY MOUTH NIGHTLY AT BEDTIME NEEDED (INSOMNIA ). 02/03 completed Not Available Not Available Not Available Pneumovax-2 3 25 mcg/0.5 mL injection syringe [facility] 10/26 completed Not Available Not Available Not Available rosuvastati n 40 mg tablet Take 1 tablet every day by oral route. active Not Available Not Available No t Available mirtazapine 7.5 mg tablet TAKE 1 TABLET BY MOUTH EVERY DAY AT BEDTIME 06/30 completed Not Available Not Available Not Available [...] x 4)/0.5 mL IM syringe [facility] 01/06 completed Not Available Not Available Not Available Vitals Date Recorded Body height Body mass index (BMI) Body weight Heart rate Oxygen saturation Oxygen saturation in Arterial blood by Pulse oximetry Systolic And Diastolic Provider Name and Address Organization Details Last Updated DateTime 5 172.72 cm 20.4 kg/m2 62406.3 8 g 75 /min 97 % 97 % 140/90 mm[Hg] [facility] 5 08:59:01 Date Recorded Body height Systolic And Diastolic Provider Name and Address Organization Details Last Updated DateTime 01/07/2025 172.72 cm 120/78 mm[Hg] [facility] 01/07/2025 16:17:10 Date Recorded Body height Body mass index (BMI) Body weight Heart rate Oxygen saturation Oxygen saturation in Arterial blood by Pulse oximetry Systolic And Diastolic Provider Name and Address Organization Details Last Updated DateTime 5 172.72 cm 22.4 kg/m2 73953.5 2 g 73 /min 94 % 94 % 118/68 mm[Hg] [facility] 5 13:35:57 Date Recorded Body height Body mass index (BMI) Body weight Oxygen saturation Oxygen saturation in Arterial blood by Pulse oximetry Heart rate Systolic And Diastolic Provider Name and Address Organization Details Last Updated DateTime 5 172.72 cm 20.2 kg/m2 67224.4 3 g 98 % 98 % 68 /min 132/84 mm[Hg] Meg Olivares [facility] 5 11:20:20 Date Recorded Body height Body mass index (BMI) Body weight Heart rate Oxygen saturation Oxygen saturation in Arterial blood by Pulse oximetry Systolic And Diastolic Provider Name and Address Organization Details Last Updated DateTime 3 172.72 cm 25.4 kg/m2 60194.9 3 g 74 /min 98 % 98 % 138/78 mm[Hg] Catarina Leon [facility] 3 09:24:37 Social History Question Answer Notes LastModified by [employer] Details LastModified Time Tobacco Smoking Status Former Smoker Not Available [facility] 06/30/2020 03:36:24 What Was The Date Of Your Most Recent Tobacco Screening? 06/30/2025 [email or web address] Information not available 06/30/2025 How Many Years Have You Smoked Tobacco? 25 [id number] Information not available 06/30/2020 Sex: Unknown Functional Status Question Answer Note LastModified by [employer] Details LastModified Time Do you or have you ever used any other forms of tobacco or nicotine? No Information not available 11/21/2022 Do you or have you ever used smokeless tobacco? Never used smokeless tobacco [id number] Information not available 06/30/2020 Do you or have you ever used e-cigarettes or vape? Never used electronic cigarettes [id number] Information not available 06/30/2020 Mental Status None recorded. Family History Relationship Description Onset Age of this Age Resolved Age Notes LastModified by Organization Details LastModified Time Father Cerebrovascu lar disease [email or web address] Not available 04/2025 13:32:20 Father Diabetes mellitus [email or web address] Not available 2018 08:25:27 Father Coronary arterioscler osis [email or web address] Not available 06/03 10:07:24 Mother Diabetes mellitus [email or web address] Not available 2018 08:25:40 Mother Cerebrovascu lar disease [email or web address] Not available 04/2025 13:32:20 Mother Myocardial infarction [email or web address] Not available 02/2019 10:07:15 Medical History Condition Response Coronary Artery Disease N Other N Gout N Blood Diseases N Kidney Stones N Breast Cancer N Blood Transfusion N Lung Disease N Depression N COPD N Defects or Inherited Disease N Anxiety [...] virus, quadrivalent, preservative 8 completed Not Available [facility] 10/22/2020 19:17:56 zoster, unspecified formulation 4 completed Bailee navarro [facility] 07/24/2024 08:19:22 influenza, unspecified formulation 4 completed Bailee navarro [facility] 07/24/2024 08:19:31 Influenza, split virus, quadrivalent, preservative 9 completed Not Available [facility] 10/22/2020 19:17:56 Td(adult) unspecified formulation 0 completed Not Available [facility] 10/22/2020 19:17:56 Influenza, split virus, quadrivalent, preservative 0 completed Not Available [facility] 10/22/2020 19:17:56 pneumococcal polysaccharide PPV23 0 completed Not Available [facility] 10/22/2020 19:17:56 Past Encounters Encounter ID Performer Location Encounter Start Date Encounter Closed Date Diagnosis/Indication Diagnosis SNOMED-CT Code Diagnosis ICD10 Code Diagnosis IMO Codes Diagnosis Note [id number] Carlo Jones [facility] [address],[place] [address] 05/15/2018 10:45:46 05/15/2018 11:19:50 Pleurisy 653392667 R09.1 s/p LRI ? Leukocytosis 135200153 D 72.829 again possible infection pneumoniti s Pneumonitis 885895179 J9 5.851 possible infection pneumoniti s seen on CTA of chest vs atelectasi s [id number] Carlo Jnoes [facility] [address], [place] [address] 06/03/2019 09:33:01 06/03/2019 10:25:22 Microscopic hematuria 444230285 R31.21 has had negative work up in 2016 Pain of mu ltiple joints 27138377 M25.50 will send for second opinion Adult heal th examination 886160986 Z00.00 first year on medicare HCP ppw Hypercholesterolemia 136 08122 E78.00 Vitamin D deficiency 347 76791 E55.9 Hypothyroidism 28810232 E03.9 Active or passive immunization 628768141 Z23 will send rx Skin lesion 48935383 L98 .9 [id number] Carlo Jones [facility] [address], [place] [address] 12/03/2019 08:50:06 12/03/2019 09:13:00 Hypertensive disorder 82897025 I10 Hypercholesterolemia 136 74164 E78.00 Vitamin D deficiency 347 34938 E55.9 Hypothyroidism 79112086 E03.9 [id number] Carlo Jones [facility] [address], [place] [address] 06/05/2020 08:49:41 06/05/2020 09:36:37 Active or passive immunization 229450607 Z23 sent tdap to pharmacy Adult heal th examination 078206115 Z00.00 BP great will check BP needs XR ELLIOTT r/o fx Ankle pain 933463941 M25 .579 needs XR for possible broken ankle Screening for cardiovascular system disease 029818267 Z13.6 bw, hasn't had bw in year [id number] Carlo Juan AlbertoJustin Jones [facility] [address], [place] [address] 10/26/2021 09:12:44 10/27/2021 10:44:21 Hypercholesterolemia 17170899 E78.01 will fu with blood work Hypertensive disorder 38 146471 I10 had not been taking his BP medication because he ran outwill not qualify this as a need to change his medication s Anxiety 15129580 F41.1 stable Screening for malignant neoplasm of prostate 393587411 Z12.5 will recheck PSA [id number] Carlo Betina Karen [facility] [address] [facility] [address], [place] [facility] [place] [place] [address] 05/04/2022 08:25:30 05/04/2022 11:20:48 Hypercholesterolemia 47827908 E78.01 will fu with blood work Hypertensive disorder 38 962915 I10 taking all his medication s again and states his BP has been down 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 559537855 E06.3 stable Mild recur rent major depression 41068455 F33.0 feels great on the venlafaxin e, did agree to try a higher dose since he feels it wears off too soon [id number] Carlo Juan AlbertoJustin Jones [facility] [address],[place] [address] 11/21/2022 09:18:07 11/21/2022 15:15:56 Hypercholesterolemia 99621491 E78.01 will f/u with blood work Hypertensive disorder 38 686755 I10 taking all his medication s again and states his BP has been down Tobacco de pendence syndrome 00038657 F17.290 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 830295177 E06.3 stable Impaired f asting glycemia 294612188 R73.01 will set up with recheck A1c Screening for malignant neoplasm of prostate 708661057 Z12.5 will recheck PSA level Basal cell carcinoma of skin 429736092 C44.319 will set up with dermatolog y Mild recur rent major depression 54292853 F33.0 stable [id number] Carlo Jones [facility] [address],[place] [address] 08/04/2023 09:16:07 08/04/2023 11:41:27 Hypothyroidism 87786086 E03.8 will set up with screening for the thyroid Mass of neck 062840007 R 22.1 will set up with US to r/o mass vs cyst vs LN Skin lesion 54859150 L98 .9 will set up with [facility] for possible basal cell vs skin lesion related to UV exposure [id number] Carlo Jones [facility] [address],[place] [address] 11/25/2024 08:50:27 11/25/2024 10:21:00 Diarrhea 59665981 R19.7 will set up for colonoscop y and additional lab work Hypothyroidism 23756000 E03.8 will set up with screening for the thyroid Hypercholesterolemia 136 93669 E78.01 will f/u with blood work Screening for malignant neoplasm of prostate 512800216 Z12.5 will recheck PSA level Benign pro static hyperplasia 427437864 N40.1 agreed [id number] Carlo Jones [facility] [address],[place] [address] 01/07/2025 15:55:46 01/07/2025 16:44:49 Retention of urine 295630950 R33.9 11579 has procedure scheduled with urology [facility] hypothyroidism 57727315 E03.8 91023 recheck thyroid given hoarseness of voice, fatigue, rash, headache Fatigue 80823276 R53.83 9192404 will set up check to r/o tick borne illness Eruption 145340362 R21 90978 macular rash along the top of his backstated it started as a qawalangin on his lower back that he remembers [id number] Carlo Jones [facility] [address], [address] [facility] [place] [place] [address] 02/03/2025 13:31:50 02/04/2025 09:14:52 Benign prostatic hyperplasia 993515984 N40.1 agreed Primary insomnia 3729106 F51.01 58057 cont on the mirtazapin e, can cut in half since he doesn't feel like he needs a whole pillalso doing better on the 75 mg venlafaxin e Retention of urine 31132 4002 R33.9 70610 has procedure scheduled with urology Severe anx iety (panic) 28572628 F41.9 16559684 much improved Depression screening 171 690063 Z13.31 negative [id number] Carlo Jones DO [facility] [address],[place] [address] 06/30/2025 11:08:41 06/30/2025 11:47:39 Depression screening 276209223 Z13.31 negative Seborrheic dermatitis 50 780319 L21.9 30086 start with topical steroid > use on both back of the neck and the low back Inflammato ry dermatosis 275529725 L30.9 26445 Fatigue 00708934 R53.83 4134103 will set up with lab workseems like his brain is too active at night causing the issue Benign pro static hyperplasia 451522906 N40.1 06865931 agreed [place] stain of skin 048045755 Q82.5 37951 Health Concerns Section Related Observation LastModified by Organization Detai ls LastModified Time None Recorded Concern Status LastModified by Organization Details LastModified Time None Recorded Advance Directives Directive None Recorded Payers Insurance Date Sequence Insurance Name Policy Number Policy Zamora Covered Member ID Zamora Member ID Guarantor Name 02/01/2025 2 [place] [facility] Raimundo Maravilla [id number] Raimundo Maravilla 06/28/2025 1 [place] [employer] Raimundo Maravilla [id number] Raimundo Maravilla 02/01/2025 1 [place] PRIOR TO 2022 - [facility] (MEDICAID) Raimundo Maravilla [id number] Raimundo Maravilla 06/28/2025 2 [place] [facility] Raimundo Maravilla [id number] Raimundo Maravilla Notes Date Note Type Note Provider Name and Address Organization Details Recorded Time 3 text/html ROS as noted in the HPI c/o pain in neck x months the [...] with pinkish colorwill set up with [facility] biopsy for screening for basal cell JOVAN WILLIS [address] [place], [address], [facility] 08/04/2023 09:37:01 5 text/html ROS as noted in the HPI f/u appt the patient reports that he has been having bowel changes for the past few months (patient hasn't been seen for two years)the patient reports that's he has mucus in his stool, it is often loosethe patient denies blood in the stool the patient's last colonoscopy was through [facility] 13 years agoneeds f/u with [...] new allergies to medications JOVAN WILLIS [address] [place], [address], [facility] 11/25/2024 09:19:19 5 text/html ROS as noted in the HPI c/o headache, rash, hoarseness of voice, fatigue subclinical hypothyroidism: the [...] patient after results come in JOVAN WILLIS [address] [place], [address], [facility] 01/07/2025 16:43:31 5 text/html ROS as noted in the HPI ER f/u (4 ER visits) patient has been to the ER multiple times within a weeks span for abdominal pain, insomnia, anxiety and urinary concernshas a tellez cather which is being monitored by urology and per last ER doc was functioning properly, did have a UTI but was already being treated by urology with bactrim, only had one dose prior to ER visit the patient was also having issues with sleep and anxiety, patient did stop his effexor cold turkey without following up with us prior to that decisionhe has since been restarted on it and added on ambien for the insomnia, as OTC treatments, sleep hygiene techniques without improvement patient had called on and off about updates about this while were adjusting his medication, did schedule him today's appt which was the soonest available given restrictions in the office due to low staff (only two provider office) patient still needs to continue with urology for the cather monitoring and maintenance TODAY:ambien wasn't working, switched him to the mirtazapine which has worked much bettersleeping through the night having increased tinnitus, mostly likely due to pollen countrecommended flonase, patient will give it a try recommended against sudafed or afrin due to his cardiac hx the patient is back up to the 75 mg venlafaxine which is working great againcont on this dose JOVAN WILLIS [address] [place], [address], [facility] 02/03/2025 13:49:03 5 text/html ROS as noted in the HPI c/o facial rash and sleep issues discussed sleep, he sleeps, but he dreams a lot, probably overactive brain at night which is causing the fatigue, ?anxietythe patient also will get updated blood work for patient the patient has the rash on his lower backthe patient states it didn't spread at all, still located in one place the patient has some SK's on the hands, benign, no changes the patient reports has dry patches on the back and neck, same as before, no changesrecommended lotion and topical steroid the patient will report back about how his skin is JOVAN WILLIS [address] [place], [address], [facility] 06/30/2025 11:49:42
--- OUTSIDE RECORDS SUMMARY | 2025-06-30 15:08 | XMS_ITS | Continuity of Care Document ---
Author Organization [facility], [facility] Address [address] [place] [address] [place] [address] Assessment No assessment recorded. Plan of Treatment Reminders Order Date Submit Date Provider Last Modified By Organization Details Last Modified Time Details Appointments FOLLOW UP 15 2024 11:15A JOVAN MARIE Not available Not available Not available Lab PSA, serum or plasma 2024 025 [facility], [address] [place] [address], [id number], 06/30/2025 11:46:43 vitamin B12 + folate, serum or blood 2024 025 [facility], [address] [place] [address], [id number], 06/30/2025 11:45:56 vitamin D, 25-hydrox y, total, serum 2024 025 [facility], [address] [place] [address], [id number], 06/30/2025 11:45:56 hemoglobi n A1c, QN, blood 2024 025 [facility], [address] [place] [address], [id number], 06/30/2025 11:45:56 CBC w/ auto diff 2024 025 [facility], [address] [place] [address], [id number], 06/30/2025 11:45:56 iron + TIBC + ferritin, serum 2024 025 [facility], [address] [place], [address], 06/30/2025 11:45:56 TSH + T4, serum 2024 025 [facility], [address] [place] [address], [id number], 06/30/2025 11:45:56 Referral None recorded. Procedures None recorded. Surgeries None recorded. Imaging None recorded. Medication Orders triamcino lone acetonide 0.1 % topical cream [address] [facility] #[id number], [address] [place], [address], 06/30/2025 11:44:41 Patient TargetsNo targets recorded. Patient InstructionsNo instructions recorded. Reason for Referral None Reported. 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 Urology work up Not Available [facility] 19:17:56 Coronary occlusio n 72034017 Active 2017 RCA s/p sent 2006 Not Available [facility] 19:17:56 Myocardi al infarcti on 07947786 Active 2018 Not Available [facility] 19:17:56 Mild recurren t major depressi on 67794870 Active 2018 Not Available [facility] 19:17:56 Impaired fasting glycemia 122049052 Active 2022 JOVAN WILLIS [address] [place], [address], [facility] 3 09:54:00 Basal cell carcinom a of skin 960079096 Active 2022 JOVAN WILLIS [address] [place], [address], [facility] 3 09:55:37 Hypothyr oidism 34250448 Active 2022 JOVAN WILLIS [address] [place], [address], [facility] 3 08:57:12 Hyperkal emia 40202633 Active 2022 JOVAN WILLIS [address] [place], [address], [facility] 3 08:57:19 Mass of neck 640812766 Active 2022 JOVAN WILLIS [address] [place], [address], [facility] 3 09:30:59 Skin lesion 16614826 Active 2022 JOVAN WILLIS [address] [place], [address], [facility] 3 09:33:54 Carotid artery stenosis 67812705 Active 2022 JOVAN WILLIS [address] [place] [address], [address], [facility] 3 13:28:52 Diarrhea 04461985 Active 2024 JOVAN WILLIS [address] [place] [address], [address], [facility] 5 09:04:23 Benign prostati c hyperpla clinton 166198435 Active 2024 JOVAN WILLIS [address] [place] [address], [address], [facility] 5 11:45:00 Anxiety 00972500 Active 2024 JOVAN WILLIS [address] [place] [address], [address], [facility] 5 10:00:54 Retentio n of urine 808024422 Active 2024 JOVAN WILLIS [address] [place] [address], [address], [facility] 5 16:25:53 Subclini sharla hypothyr oidism 17979623 Active 2024 JOVAN WILLIS [address] [place] [address], [address], [facility] 5 16:27:30 Fatigue 03973418 Active 2024 JOVAN WILLIS [address] [place] [address], [address], [facility] 5 16:31:53 Eruption 644865977 Active 2024 JOVAN WILLIS [address] [place] [address], [address], [facility] 5 16:34:22 Primary insomnia 1832707 Active 2024 JOVAN WILLIS [address] [place] [address], [address], [facility] 5 11:58:43 Severe anxiety (panic) 32864720 Active 2024 JOVAN WILLIS [address] [place] [address], [address], [facility] 5 13:28:54 Seborrhe ic dermatit is 39952924 Active 2024 JOVAN WILLIS [address] [place] [address], [address], [facility] 5 11:38:44 Inflamma tory dermatos is 622886165 Active 2024 JOVAN WILLIS [address] [place] [address], [address], [facility] 5 11:38:52 [place] stain of skin 523150223 Active 2024 JOVAN WILLIS [address] [place] [address], [address], [facility] 5 11:48:26 Problem Notes None recorded. Procedures Surgical History Date Name Laterality Status Provider Name and Address Organization Details Recorded Time 08/28/19 07 placement of stent completed [facility] 06/03/2019 08:26:33 hemorrhoid operation completed [facility] 06/03/2019 08:28:08 Thoracostomy w/flap drainage completed November KUNAL Mitchell [address] [place], [address], [facility] 06/03/2019 10:09:53 Imaging Results None recorded. Procedure [...] Lf unit/0.5 mL intramuscul ar suspension [facility]26 completed Not Available Not Available Not [...] mcg x 4)/0.5 mL IM [facility]06 completed Not Available Not Available Not Available Vitals Date Recorded Body height Body mass index (BMI) Body weight Oxygen saturation Oxygen saturation in Arterial blood by Pulse oximetry Heart rate Systolic And Diastolic Provider Name and Address Organization Details Last Updated DateTime 5 172.72 cm 20.2 kg/m2 56840.4 3 g 98 % 98 % 68 /min 132/84 mm[Hg] [facility] 5 11:20:20 Social History Question Answer Notes LastModified by Organizat ion Details LastModified Time Tobacco Smoking Status Former Smoker Not Available [facility] 06/30/2020 03:36:24 What Was The Date Of Your Most Recent Tobacco Screening? 06/30/2025 [email or web address] Information not available 06/30/2025 How Many Years Have You Smoked Tobacco? 25 [id number] Information not available 06/30/2020 Sex: Unknown Functional Status Question Answer Note LastModified by Organizat ion Details LastModified Time Do you or have you ever used any other forms of tobacco or nicotine? No [email or web address] Information not available 11/21/2022 Do you or have you ever used smokeless tobacco? Never used smokeless tobacco [id number] Information not available 06/30/2020 Do you or have you ever used e-cigarettes or vape? Never used electronic cigarettes [id number] Information not available 06/30/2020 Mental Status None [...] N High Cholesterol N Liver Disease N Headaches N Fibromyalgia N Kidney Disease N Allergies/Hayfever N Heart [...] virus, quadrivalent, preservative 8 completed Not Available [facility] 10/22/2020 19:17:56 zoster, unspecified formulation 4 completed Bailee navarro [place] [facility] 07/24/2024 08:19:22 influenza, unspecified formulation [address] [facility] 07/24/2024 08:19:31 Influenza, split virus, quadrivalent, preservative 9 completed Not Available [facility] 10/22/2020 19:17:56 Td(adult) unspecified formulation 0 completed Not Available [facility] 10/22/2020 19:17:56 Influenza, split virus, quadrivalent, preservative 0 completed Not Available [facility] 10/22/2020 19:17:56 pneumococcal polysaccharide PPV23 0 completed Not Available [facility] 10/22/2020 19:17:56 Past Encounters Encounter ID Performer Location Encounter Start Date Encounter Closed Date Diagnosis/Indication Diagnosis SNOMED-CT Code Diagnosis ICD10 Code Diagnosis IMO Codes Diagnosis Note [id number] Carlo Jones [facility] [address] [facility],[place] [address] 06/30/2025 11:08:41 06/30/2025 11:47:39 Depression screening 494934271 Z13.31 negative Seborrheic dermatitis 50 786597 L21.9 51614 start with topical steroid > use on both back of the neck and the low back Inflammato ry dermatosis 323037788 L30.9 24829 Fatigue 03028591 R53.83 9099211 will set up with lab workseems like his brain is too active at night causing the issue Benign pro static hyperplasia 023743542 N40.1 41020936 agreed [place] stain of skin 141548506 Q82.5 42376 Health Concerns Section Related Observation LastModified by Organization Detai ls LastModified Time None Recorded Concern Status LastModified by Organization Details LastModified Time None Recorded Payers Encounter Date Sequence Insurance Name Policy Number Policy Zamora Covered Member ID Zamora Member ID Guarantor Name 06/30/2025 1 [place] [id number] Raimundo Maravilla [id number] Raimundo Maravilla 06/30/2025 2 [place] [facility] Raimundo Maravilla [id number] Raimundo Maravilla Notes Date Note Type Note Provider Name and Address Organization Details Recorded Time 5 text/html ROS as noted in the [...] about how his skin is JOVAN WILLIS [address] [place] [address], [place], [address], [facility] 06/30/2025 11:49:42
[2025-06-30 18:14] LABS: MANUAL DIFF FLAG NO
[2025-06-30 18:41] LABS: Hematocrit 43.5 % (42.0-52.0); Hemoglobin 14.3 g/dl (14.0-18.0); Imm Gran Abs Auto 0.02 X10*3/uL (0.00-0.03); Imm Gran Pct Auto 0.2 % (0.0-0.4); Lymphocytes Absolute Auto 2.4 X10*3/uL (1.2-4.9); Mean Corpuscular HGB Conc 32.9 g/dl (31.0-36.0); Mean Corpuscular Hemoglobin 29.9 pg (27.0-33.0); Mean Corpuscular Volume 90.8 fL (80.0-98.0); NRBC Abs Auto 0.000 X10*3/uL (0.0-0.012); NRBC Pct Auto 0.0 /100WBC (0.0-0.2); Platelet Count 315 X10*3/uL (160-400); Red Blood Count 4.79 X10*6/uL (4.60-5.80); White Blood Count 8.6 X10*3/uL (4.8-10.8)
[2025-06-30 18:46] LABS: Iron 100 mcg/dL (45-160); Percent Iron Saturation 34 % (15-50); Total Iron Binding Capacity 292 mcg/dL (228-428); Unsaturated Iron Binding 192 ug/dL
[2025-06-30 18:49] LABS: Ferritin 117 ng/mL (20-250)
[2025-06-30 18:54] LABS: Prostate Specific Antigen 0.93 ng/mL (<0.05-4.0)
[2025-06-30 19:10] LABS: Folate 13.3 ng/mL (> or = 4.0); Vitamin B12 452 pg/mL (200-900)
[2025-07-01 06:12] LABS: Hemoglobin A1C 141.4522 umol/L; Total Hemoglobin (HGBA1C) 3730.7730 umol/L
== END 2025-06-30 11:53 | disposition home or self-care (01) ==
LOC: HO.MANLDS 11:52
PROVIDERS: Visit Provider Physician Assistant
DX: Z12.5 Encounter for screening for malignant neoplasm of prostate (principal); Z13.1 Encounter for screening for diabetes mellitus; R53.83 Other fatigue; N40.1 Benign prostatic hyperplasia with lower urinary tract symptoms
CPT/HCPCS: 36415; 82306; 82607; 82728; 82746; 83036; 83540; 84153; 84443; 85025